=== PATIENT | male | born 1985 | race Caucasian/White ===

== ENCOUNTER 2016-06-05 12:55 | Inpatient (IN) | payer MEDICAID, OTHER ==
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
[2016-06-05] MEDS ORDERED: MAG HYDROX/AL HYDROX/SIMETH 30 ML CUP PO PRN (15:33)
[2016-06-05] MEDS ORDERED: MAGNESIUM HYDROXIDE 2,400 MG/10 ML CUP PO PRN (15:33)
[2016-06-05] MEDS ORDERED: ACETAMINOPHEN TAB 325 MG TAB PO PRN (15:33)
[2016-06-05] MEDS ORDERED: INFLUENZA VACCINE (3YR+) 60 MCG/0.5 ML SYRINGE IM ONE (15:47)
[2016-06-05] MEDS: NICOTINE 21MG/24HR PATCH TRANSDERM SCH (16:01)
[2016-06-05] MEDS: ALPRAZolam 0.5 MG TAB PO PRN (16:04)
[2016-06-05] MEDS: IBUPROFEN 800 MG TAB PO PRN (16:31)
[2016-06-05 16:36] VITALS: BMI 29.0
[2016-06-05] MEDS: traZODone HCL 100 MG TAB PO SCH (21:49)
[2016-06-06] MEDS: ALPRAZolam 0.5 MG TAB PO PRN ×3 (01:08→16:44)
[2016-06-06] MEDS: LORazepam 2 MG/ML SYRINGE IM PRN ×2 (02:00→23:10)
[2016-06-06] MEDS: NICOTINE 21MG/24HR PATCH TRANSDERM SCH (09:37)
[2016-06-06] MEDS: IBUPROFEN 800 MG TAB PO PRN (09:38)
[2016-06-06 12:11] LABS: Basophils # (A) 0.1 k/uL (0-0.2); Basophils % (A) 1 %; CH 30.5; CHCM 35.1; Eosinophils # (A) 0.2 k/uL (0-0.7); Eosinophils % (A) 2 %; HCT 44.1 % (39.0-53.0); HGB 15.1 gm/dL (13.0-17.5); Luc # (Auto) 0.11; Luc % (Auto) 1; Lymphocytes % (A) 26 %; MCH 29.9 pg (25.0-35.0); MCHC 34.2 g/dL (31.0-37.0); MCV 87.4 fL (80.0-100.0); Mean Platelet Volume 6.4; Monocytes # (A) 0.5 k/uL (0-1.0); Monocytes % (A) 6 %; Neutrophils # (A) 4.9 k/uL (1.3-7.7); Neutrophils % (A) 64 %; RBC 5.04 m/uL (4.30-5.90); RDW 13.1 % (11.5-15.5); WBC 7.7 k/uL (3.8-10.6); WBC (Perox) 8.16
[2016-06-06] MEDS: busPIRone HCl 5 MG TAB PO SCH ×3 (12:16→22:11)
[2016-06-06] MEDS: ALPRAZolam 0.5 MG TAB PO SCH ×3 (12:16→22:11)
[2016-06-06 12:34] LABS: ALT 29 U/L (21-72); AST 15 U/L (17-59); Alkaline Phosphatase 66 U/L (38-126); Anion Gap 10 mmol/L; Blood Urea Nitrogen 16 mg/dL (9-20); Calcium 9.4 mg/dL (8.4-10.2); Carbon Dioxide 30 mmol/L (22-30); Chloride 105 mmol/L (98-107); Glucose 84 mg/dL (74-99); Non-African American GFR(MDRD) >60 (>60 ml/min/1.73 sqM); Sodium 145 mmol/L (137-145); Total Bilirubin 0.7 mg/dL (0.2-1.3); Total Protein 6.6 g/dL (6.3-8.2)
--- NOTE | 2016-06-06 12:44 | P.CONS ---
History of Present Illness - Reason for Consult Consult date: 06/06/16 Medical management of IBS - History of Present Illness This is a somewhat saddened 31-year-old white male. He is complaining of significant anxiety. He reports midsternal chest pain when his anxiety is severe. He indicates this been going on for quite some time. He is here to the psych floor to deal with this and depression issues. Medically he indicates he has a history of irritable bowel syndrome and the he takes probiotics and other medications for this. His symptoms have been stable with these. He has a history of hepatitis C that is been treated. He has chronic low back pain, he seen the pain clinic for this here at [facility]. He reports his symptoms are well-controlled.. Review of Systems All systems: negative Constitutional: Reports as per HPI, Denies chills, Denies fever Eyes: denies blurred vision, denies pain Ears, nose, mouth and throat: Denies headache, Denies sore throat Cardiovascular: Reports as per HPI, Reports chest pain, Reports high blood pressure (Not recently), Denies shortness of breath Respiratory: Denies cough Gastrointestinal: Reports as per HPI, Reports abdominal pain (Mild greatest of the left upper quadrant), Reports bloating, Reports diarrhea, Denies nausea, Denies vomiting Musculoskeletal: Reports as per HPI, Reports low back pain, Denies myalgias Integumentary: Denies pruritus, Denies rash Neurological: Denies numbness, Denies weakness Psychiatric: Denies anxiety, Denies depression Endocrine: Denies fatigue, Denies weight change Past Medical History Past Medical History: Liver Disease (HCV, now in remission), Musculoskeletal Disorder (Chronic low back pain) Additional Past Medical History / Comment(s): diverticulosis History of Any Multi-Drug Resistant Organisms: None Reported Past Surgical History: Orthopedic Surgery (left shoulder and left ankle) Additional Past Surgical History / Comment(s): dental extractions Past Anesthesia/Blood Transfusion Reactions: No Reported Reaction Past Psychological History: Anxiety, Depression Smoking Status: Heavy tobacco smoker Past Alcohol Use History: None Reported Additional Past Alcohol Use History / Comment(s): HAS SMOKED 1 PPD FOR PAST 14 YRS Past Drug Use History: None Reported, Opiates (Originally for low back pain), Prescription Drug Abuse - Past Family History Father Family Medical History: Unable to Obtain Mother Family Medical History: No Reported History Medications and Allergies Home Medications Medication Instructions Recorded Confirmed Type ALPRAZolam [Xanax] 2 mg PO TID 03/23/16 06/05/16 History DULoxetine HCL [Cymbalta] 60 mg PO DAILY 04/22/16 06/05/16 History Ibuprofen [Motrin] 800 mg PO Q8H PRN 06/05/16 06/05/16 History Allergies Allergy/AdvReac Type Severity Reaction Status Date / Time ketorolac tromethamine Allergy Rash/Hives Verified 06/05/16 15:05 [From Toradol] Physical Exam Vitals: Vital Signs Temp Pulse Pulse Pulse Resp BP BP 06/06/16 10:42 94 20 121/72 06/06/16 06:46 97.7 F 74 16 06/05/16 15:59 98 F 92 16 06/05/16 15:02 98.2 F 101 H 20 123/79 BP Pulse Ox 06/06/16 10:42 99 06/06/16 06:46 112/67 06/05/16 15:59 111/79 06/05/16 15:02 95 Intake and Output 06/05/16 06/06/16 06/06/16 22:59 06:59 14:59 Other: Weight 86.5 kg 87.4 kg Patient Weight 06/07/16 06:59 Weight 87.4 kg GENERAL: Well-appearing, well-nourished and anxious HEAD: Atraumatic, normocephalic. EYES: Pupils equal round and reactive to light, extraocular movements intact, sclera anicteric, conjunctiva are normal. ENT:nares patent, oropharynx clear without exudates. Moist mucous membranes. NECK: Normal range of motion, supple without lymphadenopathy or JVD, no thyromegaly LUNGS: Breath sounds clear to auscultation bilaterally and equal. No wheezes rales or rhonchi. HEART: Regular rate and rhythm without murmurs, rubs or gallops.[id number] Normal ABDOMEN: Soft, minimally tender in all quadrants, normoactive bowel sounds. No guarding, no rebound. No masses appreciated. EXTREMITIES: Normal range of motion, no pitting or edema. No clubbing or cyanosis. NEUROLOGICAL: Cranial nerves II through XII grossly intact. Normal speech, normal gait. PSYCH: Normal mood, normal affect. SKIN: Warm, Dry, normal turgor, no rashes or lesions noted. Results CBC & Chem 7: 06/06/16 11:39 Assessment and Plan Plan: IBS: I'll restart probiotics for him to help with his stools. Anxiety and depression: This is the main reason for his admission, psychiatry is following. chronic low back pain: We nonnarcotics as he had a history of opioid abuse issues in the past. He'll follow-up in the pain clinic at discharge Opioid abuse HX: I will leave this to psychiatry HCV, now in remission: We'll monitor LFTs. Chest pain: This seems to primarily musculoskeletal a anxiety driven. I will check labs to rule out any cardiac causes Tobacco abuse: Counseling was given him today. Review his labs when they're available. Will follow up with him if needed during this admission, otherwise outpatient
[2016-06-06 13:14] LABS: Creatine Kinase 63 U/L (55-170)
[2016-06-06 13:26] LABS: Troponin I <0.012 ng/mL (0.000-0.034)
[2016-06-06 13:30] LABS: Creatine Kinase MB <0.2 ng/mL (0.0-2.4)
[2016-06-06] MEDS: LACTOBACILLUS ACIDOPH & BULGAR 1 EACH PACKET PO SCH ×2 (13:34→22:09)
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
[2016-06-06] MEDS: traZODone HCL 100 MG TAB PO SCH (22:10)
[2016-06-07] MEDS: NICOTINE 21MG/24HR PATCH TRANSDERM SCH (08:35)
[2016-06-07] MEDS: LACTOBACILLUS ACIDOPH & BULGAR 1 EACH PACKET PO SCH ×2 (08:35→21:58)
[2016-06-07] MEDS: ALPRAZolam 0.5 MG TAB PO SCH ×4 (08:35→21:58)
[2016-06-07] MEDS: DULoxetine HCL 30 MG CAPSULE.DR PO SCH (08:35)
[2016-06-07] MEDS: busPIRone HCl 5 MG TAB PO SCH ×4 (08:35→21:59)
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
[2016-06-07] MEDS: ALPRAZolam 0.5 MG TAB PO PRN (16:26)
[2016-06-07] MEDS: IBUPROFEN 800 MG TAB PO PRN (17:11)
[2016-06-07] MEDS: traZODone HCL 100 MG TAB PO SCH (21:58)
[2016-06-07] MEDS: LORazepam 2 MG/ML SYRINGE IM PRN (23:09)
[2016-06-08 06:56] VITALS: BP 112/63; PULSE 69; RESP 14; TEMP 97.7
[2016-06-08] MEDS: DULoxetine HCL 30 MG CAPSULE.DR PO SCH (08:29)
[2016-06-08] MEDS: busPIRone HCl 5 MG TAB PO SCH ×2 (08:29→12:17)
[2016-06-08] MEDS: ALPRAZolam 0.5 MG TAB PO PRN (08:29)
[2016-06-08] MEDS: NICOTINE 21MG/24HR PATCH TRANSDERM SCH (08:30)
[2016-06-08] MEDS: LACTOBACILLUS ACIDOPH & BULGAR 1 EACH PACKET PO SCH (08:34)
[2016-06-08] MEDS: ALPRAZolam 0.5 MG TAB PO SCH (08:34)
[2016-06-08] MEDS ORDERED: LORazepam 0.5 MG TAB PO PRN (08:57)
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
== END 2016-06-08 12:45 | disposition home or self-care (01) | DRG 881 ==
LOC: EC 12:55 → 3MHU 14:50
PROVIDERS: ADMIT Psychiatry & Neurology Psychiatry; ATTEND Psychiatry & Neurology Psychiatry
DX: F32.9 Major depressive disorder, single episode, unspecified (principal); R45.851 Suicidal ideations; F41.1 Generalized anxiety disorder; F17.200 Nicotine dependence, unspecified, uncomplicated; G89.29 Other chronic pain; K58.9 Irritable bowel syndrome, unspecified; M54.5 Low back pain; K57.90 Diverticulosis of intestine, part unspecified, without perforation or abscess without bleeding; F60.9 Personality disorder, unspecified; B19.20 Unspecified viral hepatitis C without hepatic coma; Z79.899 Other long term (current) drug therapy; Z88.5 Allergy status to narcotic agent
CPT/HCPCS: 80053; 80300; 82075; 82550; 82553; 84439; 84443; 84484; 85025; 90686; 93005; 99285

== ENCOUNTER → 2016-06-16 | Outpatient (CLI) | payer OTHER ==
--- NOTE | 2016-06-16 13:53 | MR ---
MR thoracic spine without contrast history: M47.814 spondylosis without myelopathy thoracic spine Multiplanar multisequence imaging through the thoracic spine, no comparisons There is multilevel spondylosis present. Thoracic cord signal is maintained. Thoracic vertebral rene s show preserved height and alignment. Some minimal endplate discogenic marrow signal changes noted a t multiple levels. Multilevel facet arthropathy changes. Schmorl's node present at the superior endpl ate of T8, T10. There is a mild scoliosis present. T6-7: Small central posterior disc herniation causes slight anterior mass effect on the thecal sac. N o significant central canal stenosis. T8-9: Small right posterior paracentral disc herniation causes anterior mass effect on the thecal sac . There is a synovial cyst arising from the facet arthropathy on the right causing some posterior lat eral mass effect on the thecal sac, there may be some encroachment on the neural foramen. T9-10: There is a anterior disc herniation which extends posteriorly into the right posterior paracen tral location and causes mass effect on the thoracic cord. Facet arthropathy causes some posterior la teral aspect of the thecal sac. IMPRESSION: Degenerative disc disease, facet arthropathy, disc herniation as described at T9-10.
== END ==
LOC: RADMRIMAIN 12:31
PROVIDERS: ATTEND Anesthesiology
DX: M51.34 Other intervertebral disc degeneration, thoracic region (principal); M46.94 Unspecified inflammatory spondylopathy, thoracic region; M51.24 Other intervertebral disc displacement, thoracic region
CPT/HCPCS: 72146

== ENCOUNTER → 2016-06-24 | Outpatient (CLI) | payer OTHER ==
[2016-06-24 13:31] VITALS: BP 138/89; PULSE 125; RESP 16; TEMP 98.2
--- NOTE | 2016-06-24 14:38 | P.PN ---
Progress Note - Text Patient returns for followup for chronic mid-back pain with radiation to paravertebral area. Patient has tried multiple NSAIDS and muscle relaxants without benefit. Patient denies adverse drug effects from medications. Today, pt denies new-onset weakness, bowel/bladder incontinence, or any other signs or symptoms of cauda equina syndrome. There are no signs of acute intoxication, and no indications of medication diversion or overuse. In addition to above, 13-point review of systems is also negative for chest pain , shortness of breath, changes in vision, changes in hearing, new onset weakness , abdominal pain, diarrhea, extreme fatigue, malaise, fever, skin changes, homicidal or suicidal ideation, or bowel or bladder incontinence. Vital Signs: Reviewed in EMR Gen: WDWN, AAOx3, NAD HEENT: NCAT, EOMI, hearing grossly normal Pulm: resp unlabored Abd: soft, NT, ND Neck: supple, trachea midline ROM in flexion thoracic spine: reduced ROM in extension thoracic spine: reduced Thoracic paravertebral tenderness: ++ thoracic Facet tenderness: ++ ROM in flexion lumbar spine: reduced ROM in extension lumbar spine: reduced Lumbar paravertebral tenderness: + Neuro: CN II-XII grossly intact, muscle strength lower extremities PRESERVED Imaging: MRI thoracic spine demonstrates small central posterior disc herniations at T6-T7, T8-T9, T9-T10. There is facet arthropathy at the T7-T8, T8-T9 level and T9-T10 levels. Assessment: 1. thoracic myofascial pain 2. thoracic spondylosis 3. chronic pain syndrome Plan: 1. Explanation: Opioid and psychological risk scores were reviewed. Diagnoses , prognoses, and multiple treatment options including but not limited to physical therapy, interventional therapies, adjuvant medical therapies, narcotic medication therapies, and surgery were discussed with the patient and all questions were answered to the patient's satisfaction. 2. Opioid agreement: no opioids prescribed today 3. Counseling: The patient was counseled extensively on SMOKING CESSATION, BODY MASS INDEX, EXERCISE. Specifically, the patient was instructed regarding the importance of smoking cessation, obesity, and exercise in the context of both chronic pain and overall health. 4. Procedures: bilateral thoracic MBB 5. Consultations: None 6. Investigations: none 7. Medications: none prescribed; will UDS at visit prior to procedure and can prescribe [place] 7.5/325 up to BID (patient was receiving from [facility] prior to his visits with us) 8. Disposition: f/u for thoracic MBB in 4-6 weeks PQRS measures: 1-Patient's medications are documented in the chart. 2-Tobacco use is positive, counseling given 3-Patient has not had a pneumococcal vaccine. 4-Advanced care planning discussed, patient unable to give. 5-Opioid contract signed with the patient today. 6-Pain positive, follow-up visit or procedure scheduled 7-Patient's blood pressure measured and documented, and patient will follow up with the primary care due to hypertension. 8-Patient's weight was measured, and body mass index ABOVE the normal limits, and counseling was done. Patient instructed to follow up with PCP. 9-Patient WAS NOT identified as an unhealthy alcohol user.
== END | disposition home or self-care (01) ==
LOC: PNWHC3 12:52
PROVIDERS: ATTEND Anesthesiology
DX: M79.1 Myalgia (principal); M47.894 Other spondylosis, thoracic region; M46.94 Unspecified inflammatory spondylopathy, thoracic region; G89.4 Chronic pain syndrome; Z72.0 Tobacco use; I10 Essential (primary) hypertension
CPT/HCPCS: 99211

== ENCOUNTER 2016-07-03 20:45 | Emergency (ER) | payer OTHER ==
[2016-07-03 20:57] VITALS: BP 137/77; PULSE 106; RESP 16; TEMP 97.2
[2016-07-03] MEDS ORDERED: ORPHENADRINE 30 MG/ML 2 ML VIAL IM STA (21:08)
--- NOTE | 2016-07-03 21:37 | XR ---
EXAMINATION TYPE: XR lumbar spine 2 or 3V DATE OF EXAM: 07/03/2016 9:23 PM COMPARISON: NONE HISTORY: Back pain TECHNIQUE: 3 views FINDINGS: The vertebra have normal spacing and alignment. Posterior elements are intact. Sacroiliac j oints are normal. IMPRESSION: Normal lumbar spine exam.
--- NOTE | 2016-07-03 21:37 | XR ---
EXAMINATION TYPE: XR thoracic spine 2V DATE OF EXAM: 07/03/2016 9:23 PM COMPARISON: NONE HISTORY: Back pain TECHNIQUE: 3 views FINDINGS: The vertebrae are of normal spacing and alignment. Posterior elements are intact. There is no paraspinal mass. I see no compression fracture. IMPRESSION: Negative thoracic spine exam.
--- NOTE | 2016-07-03 21:41 | ED ---
Back Pain HPI - General Chief Complaint: Back Pain/Injury Stated Complaint: fell(standing position), back injury Time Seen by Provider: 07/03/16 20:51 Source: patient, EMS, RN notes reviewed Limitations: no limitations - History of Present Illness Initial Comments: Patient is a 31-year-old male chief complaint of thoracic and lumbar back pain after falling on the ice. Patient reports that he has history of chronic back pain and recently had an MRI stating that he has herniated disks from T6 through T11. Patient reports that after he fell he was able to ambulate and put a heating pad on his back however he had no relief of his pain. Patient also reports that he has no loss of bowel or bladder control. Patient was able to ambulate again after the injury. Patient reports that he was seen earlier today and a another emergency facility for his chronic back pain and was discharged without any imaging studies and instructed to follow-up with his pain management doctor. Patient reports that he's had a history of anxiety and when she takes 1 mg of Ativan in the mornings. Patient denies any recent fever, chills, shortness of breath, chest pain, abdominal pain, nausea vomiting, numbness or tingling, dysuria or hematuria, constipation or diarrhea, headaches or visual changes, or any other current symptoms - Related Data Home Medications Medication Instructions Recorded Confirmed Baclofen [Lioresal] 10 mg PO TID PRN 06/24/16 06/24/16 Lactobacillus Acidoph & Bulgar 1 each PO BID PRN 06/24/16 06/24/16 [Lactinex] traZODone HCL [Desyrel] 100 mg PO HS PRN 06/24/16 06/24/16 Previous Rx's Medication Instructions Recorded Ibuprofen [Motrin] 800 mg PO Q8H PRN #0 tab 06/08/16 Nicotine 21Mg/24Hr Patch [Habitrol] 1 patch TRANSDERM DAILY #30 patch 06/08/16 Cyclobenzaprine [Flexeril] 10 mg PO TID #12 tab 07/03/16 traMADol HCl [Ultram] 50 mg PO Q6H PRN #12 tab 07/03/16 Allergies Allergy/AdvReac Type Severity Reaction Status Date / Time ketorolac tromethamine Allergy Rash/Hives Verified 06/24/16 13:08 [From Toradol] Review of Systems ROS Statement: Those systems with pertinent positive or pertinent negative responses have been documented in the HPI. ROS Other: All systems not noted in ROS Statement are negative. Past Medical History Past Medical History: Liver Disease, Musculoskeletal Disorder Additional Past Medical History / Comment(s): diverticulitis, IBS, Hepatitis C, chronic back pain. States Hepatitis C was acute and now it's gone - per Dr. Chapin History of Any Multi-Drug Resistant Organisms: None Reported Past Surgical History: Orthopedic Surgery Additional Past Surgical History / Comment(s): left shoulder, left ankle; 8 teeth extracted, [facility] Past Anesthesia/Blood Transfusion Reactions: No Reported Reaction Past Psychological History: Anxiety, Depression Additional Psychological History / Comment(s): [place] Smoking Status: Current every day smoker Past Alcohol Use History: None Reported Additional Past Alcohol Use History / Comment(s): HAS SMOKED 1 PPD FOR PAST 14 YRS Past Drug Use History: None Reported - Past Family History Father Family Medical History: Unable to Obtain Mother Family Medical History: No Reported History General Exam - General Exam Comments Initial Comments: Patient is a 31 year old male in no acute distress. Patient was able to ambulate from bed to wheel chair. Limitations: no limitations General appearance: alert, in no apparent distress Head exam: Present: atraumatic, normocephalic, normal inspection Eye exam: Present: normal appearance, PERRL, EOMI. Absent: scleral icterus, conjunctival injection, periorbital swelling ENT exam: Present: normal exam, mucous membranes moist Neck exam: Present: normal inspection. Absent: tenderness, meningismus, lymphadenopathy Respiratory exam: Present: normal lung sounds bilaterally. Absent: respiratory distress, wheezes, rales, rhonchi, stridor Cardiovascular Exam: Present: regular rate, normal rhythm, normal heart sounds. Absent: systolic murmur, diastolic murmur, rubs, gallop, clicks GI/Abdominal exam: Present: soft, normal bowel sounds. Absent: distended, tenderness, guarding, rebound, rigid Extremities exam: Present: normal inspection, full ROM, normal capillary refill. Absent: tenderness, pedal edema, joint swelling, calf tenderness Back exam: Present: normal inspection, full ROM, paraspinal tenderness (lumbar ) , vertebral tenderness (thoracic spinal tenderness over T6 ). Absent: tenderness, CVA tenderness (R), CVA tenderness (L), muscle spasm Neurological exam: Present: alert, oriented X3, CN II-XII intact, normal gait, reflexes normal. Absent: abnormal gait, motor sensory deficit Psychiatric exam: Present: normal affect, normal mood Skin exam: Present: warm Course Vital Signs 07/03/16 20:54 Temperature 97.2 F L Pulse Rate 106 H Respiratory 16 Rate Blood Pressure 137/77 O2 Sat by Pulse 96 Oximetry Medical Decision Making - Medical Decision Making Patient is a 31-year-old male with chief complaint of acute lower back pain after a fall on the ice. Patient reports smelling his thoracic spine. He has a history of herniated disc at T6 through T11. Patient had a recent MRI. Given the patient's fall is due to imaging studies of his thoracic and lumbar spine. Patient denies any saddle anesthesias is able to ambulate at this time. Patient was given IM Norflex. Patient's x-rays were reviewed to be negative for any acute fracture, spondylolisthesis or spondylolysis. I did review patient's previous charts and he does have a history of herniated disks in T6, T 90 QT 10. Patient will be discharged at this time with Flexeril and tramadol and instructed to follow-up with primary care provider or his [facility] [employer]. Patient understands treatment plan will comply. Return parameters were discussed. - Radiology Data Radiology results: report reviewed Thoracic and lumbar spine x-rays are negative for any acute fractures, spondylolisthesis or spondylolysis. Disposition Clinical Impression: Acute exacerbation of chronic low back pain Disposition: HOME SELF-CARE Condition: Good Instructions: Acute Low Back Pain (ED) Additional Instructions: instructed to follow-up with pain management. Patient advise to return the EC if any alarming signs or symptoms occur. Take anti-inflammatory and pain medications as directed. Prescriptions: Cyclobenzaprine [Flexeril] 10 mg PO TID #12 tab traMADol HCl [Ultram] 50 mg PO Q6H PRN #12 tab PRN Reason: Pain Referrals: Quang Doty MD [Primary Care Provider] - 1-2 days Time of Disposition: 21:44
[2016-07-03] MEDS ORDERED: traMADol 50 MG STARTER PACK 3 TAB BTL PO STA (21:44)
== END 2016-07-03 22:04 | disposition home or self-care (01) ==
LOC: EC 20:45
DX: M54.5 Low back pain (principal); G89.29 Other chronic pain; M51.24 Other intervertebral disc displacement, thoracic region; F17.200 Nicotine dependence, unspecified, uncomplicated; Z88.8 Allergy status to other drugs, medicaments and biological substances; Z79.899 Other long term (current) drug therapy; W00.0XXA Fall on same level due to ice and snow, initial encounter
CPT/HCPCS: 72070; 72100; 99283; 96372; J2360

== ENCOUNTER 2016-07-13 06:39 | Day surgery (SDC) | payer OTHER ==
[2016-07-13] MEDS ORDERED: LACTATED RINGERS 1,000 ML IV SCH (07:15)
[2016-07-13 07:25] VITALS: RESP 16; TEMP 97.9
[2016-07-13] MEDS ORDERED: LIDOCAINE 1% 20 ML VIAL (10MG/ML) FOR IV START INTRADERMA ONE (07:27)
[2016-07-13] MEDS ORDERED: TRIAMCINOLONE ACETONIDE 40 MG/ML 1 ML VIAL ONE (07:51)
[2016-07-13] MEDS ORDERED: fentaNYL (PF) 50 MCG/ML 2 ML AMP ONE (07:51)
[2016-07-13] MEDS ORDERED: MIDAZOLAM 2 MG/2 ML VIAL ONE (07:51)
[2016-07-13] MEDS ORDERED: BUPIVACAINE (PF) 0.5% 30 ML VIAL ONE (07:51)
[2016-07-13] MEDS ORDERED: IV FLUID CONTINUATION 1,000 ML IV ONE (08:28)
--- NOTE | 2016-07-13 08:49 | FL ---
EXAMINATION TYPE: FL guided pain mgmt statistic DATE OF EXAM: 07/13/2016 8:30 AM CLINICAL HISTORY: Mid back pain. TECHNIQUE: Fluoroscopy. COMPARISON: None. FINDINGS: Fluoroscopic guidance was provided during pain relief procedure performed by Dr. Mendoza . A total of 28 seconds of fluoroscopic time was utilized during the procedure and for spot images a re acquired. Images acquired shows needle localization at several levels in the thoracic spine bilat erally. IMPRESSION: As Above.
[2016-07-13 08:55] VITALS: BP 139/97; PULSE 89
--- NOTE | 2016-07-13 09:03 | XR ---
EXAMINATION TYPE: XR chest 1V portable DATE OF EXAM: 07/13/2016 8:58 AM COMPARISON: NONE HISTORY: Status post thoracic pain management procedure rule out pneumothorax TECHNIQUE: Single AP portable frontal upright view of the chest is obtained. FINDINGS: There is patchy left basilar atelectasis and/or infiltrate. Right lung is clear. No pleura l effusion or pneumothorax is evident bilaterally. The cardiac silhouette size is within normal limit s. The osseous structures are intact. IMPRESSION: No pneumothorax noted bilaterally. Patchy left basilar atelectasis and/or infiltrate is n oted.
--- NOTE | 2016-07-13 10:54 | P.PCN ---
Date of Procedure: 07/13/16 Procedure(s) Performed: PREOPERATIVE DIAGNOSIS : 1- Thoracic spondylosis with Facet Arthropathy without myelopathy . 2- thoracic herniated disc disease POSTOPERATIVE DIAGNOSIS: 1- Thoracic spondylosis with Facet Arthropathy without myelopathy . 2- thoracic herniated disc disease PROCEDURE: Diagnostic bilateral T7-8 ,T8-9 , T9-10 medial branch block under fluoroscopy ANESTHESIA: Local with 1% lidocaine 6 ml ; IV sedation with Versed 4 mg and Fentanyl 200 mcg. EBL: Minimal COMPLICATION: None. IV FLUIDS: 100 mL of normal saline. PROCEDURE INDICATION: Chronic low back pain secondary to Facet arthropathy unresponsive to conservative treatment. PROCEDURE DESCRIPTION: the patient was seen and identified in the preop holding area , risks and benefits and possible complications of the procedure and alternative were discussed with the patient, and the patient agreed to proceed with the procedure and signed the consent IV was started and vital signs monitored during the procedure and fluoroscopy was used to maximize the benefit and accuracy of the needle placement, and sedation was given to decrease patient anxiety, patient was taken to the procedure room and placed in prone position vital signs monitored in the back prepped with chlorhexidine X3 then under strict sterile technique using a right oblique fluoroscopy ,the junction of the transverse process and the superior articulating process of the right T7-8 ,T8-9 ,T9-10 vertebra which corresponding to the fluoroscopy image of the eye of the Mateusz dog on the block side for the medial branches and subsequently , after local infiltration of skin and subcu tissuies with lidocaine 1% one mL at each level ,then 22- gauge Quincke-type needles , 3 needle was used , each one of them placed at the junction of the base of the transverse process and the superior articular process at the appropriate level, and the needle was advanced until the periosteum contacted, needle placement confirmed with AP oblique and lateral view and after appropriate needle placement confirmed, and after negative aspiration for heme and CSF and there was no paresthesia 1-1/2 mL of Marcaine 0.5% mixed with 40 mg Kenalog , then half mL injected at each level after negative aspiration the needle subsequently removed and the same procedure repeated for the left side at left side at T7-8 ,T8-9 ,T9-10 levels. At the end of the procedure and the needles removed and a bandage applied after the skin was cleaned the cleaning solution patient taken to recovery room in stable condition and monitors in the recovery room for 20-30 minutes and discharged home in stable condition after discharge criteria met and patient will follow up with the pain clinic in 2-4 weeks
== END 2016-07-13 09:21 | disposition home or self-care (01) ==
LOC: ORPAIN 06:39
PROVIDERS: ATTEND Specialist
DX: G89.29 Other chronic pain (principal); M47.814 Spondylosis without myelopathy or radiculopathy, thoracic region; M51.24 Other intervertebral disc displacement, thoracic region; M46.94 Unspecified inflammatory spondylopathy, thoracic region; Z88.6 Allergy status to analgesic agent
CPT/HCPCS: 99152; 71010; 64490; 64491; 64492; J2250; J3301; J3010

== ENCOUNTER 2016-07-30 05:54 | Day surgery (SDC) | payer OTHER ==
[2016-07-29 11:19] VITALS: BMI 30.4
[~2016-07-30 05:54] MED LIST: LACTATED RINGERS 1,000 ML IV SCH
[2016-07-30 06:22] VITALS: RESP 16; TEMP 97.8
[2016-07-30] MEDS ORDERED: LIDOCAINE 1% 20 ML VIAL (10MG/ML) FOR IV START INTRADERMA ONE (06:24)
[2016-07-30] MEDS ORDERED: TRIAMCINOLONE ACETONIDE 40 MG/ML 1 ML VIAL ONE (08:28)
[2016-07-30] MEDS ORDERED: fentaNYL (PF) 50 MCG/ML 2 ML AMP ONE (08:28)
[2016-07-30] MEDS ORDERED: MIDAZOLAM 2 MG/2 ML VIAL ONE (08:28)
[2016-07-30] MEDS ORDERED: IOHEXOL 180 MG/ML 1 ML ML ONE (08:28)
--- NOTE | 2016-07-30 08:48 | P.PCN ---
Date of Procedure: 07/30/16 Procedure(s) Performed: PREOPERATIVE DIAGNOSIS: 1- Thoracic Degenerative Disc Diseases 2-Thoracic spondylosis with Facet arthropathy without myelopathy. 3-thoracic herniated disc disease POSTOPERATIVE DIAGNOSIS: Same as preoperative diagnosis PROCEDURE 1. Thoracic epidural steroid injection under fluoroscopic guidance at the T8-9 level. 2. Thoracic epidurogram. ANESTHESIA: Local with 1% lidocaine 3 ml and IV sedation with Versed 4 mg , and fentanyle 100 Mcg EBL: Minimal PROCEDURE INDICATION: The patient with mid back pain , unresponsive to conservative treatment. With done diagnostic medial branch blocks a few weeks ago patient reported that his pain increased after the block and he spent 2 days in. He couldn't move after the diagnostic medial branch block and is concerned about the procedure, because patient had multiple factor causing his low back pain with discussed with the patient the option of changing the procedure to thoracic epidural steroid injection, hopefully this will help his low mid back pain , Fluoroscopy was used to optimize visualization of the needle placement and to maximize safety. PROCEDURE DESCRIPTION / TECHNIQUE: The patient was seen and identified in the preoperative area. Risks, benefits , complications including but not limited to infections ,bleeding ,allergic reaction to the medications ,nerve damage and not complete pain releife , and alternatives were discussed with the patient. The patient agreed to proceed with the procedure and signed the consent. IV was started, and vital signs were stable. Patient was taken to the OR and time out was completed. The patient was placed in the prone position on procedure table and a pillow was placed under the abdomen ,. The Thoracic area was prepped and draped in the usual sterile fashion.ere closely monitored during the procedure. Conscious sedation was used during the procedure to decrease patients anxiety. Vital signs was monitered during the entire procedure. Using anterior-posterior fluoroscopy, the T8-9 interlaminar space was identified and the skin over this site was marked and then infiltrated with 1% lidocaine subcutaneously. Subsequently, a 20-gauge Tuohy epidural needle was inserted and advanced toward the epidural space using the ``Loss of resistance technique and guided by AP and lateral fluoroscopy. The correct needle position in the epidural space was verified with the injection of 2 mL of the water soluble contrast dye Omnipaque 180 contrast and observing an excellent epidurogram with the epidural spread of the dye, after negative aspiration for blood and CSF and in the absence of paresthesias. Again after negative aspiration, a 4 ml mixture containing 80 mg of Kenalog and 2 ml of preservative free Normal Saline, was injected and a washout of epidurogram was seen. Needle was withdrawn intact, skin was cleansed, and bandages were applied. COMPLICATIONS: None DISPOSITION / PLANS: The patient was placed in a supine position and transferred to the recovery area in a stable condition for observation. There was no evidence of lower extremity motor or sensory deficit after the procedure. Patient was discharged from the recovery room after meeting discharge criteria. Home discharge instructions were given to the patient by the staff. The patient was reexamined prior to discharge. The patient will schedule a follow up in the clinic in 2-4 weeks.
[2016-07-30] MEDS ORDERED: IV FLUID CONTINUATION 1,000 ML IV ONE (08:50)
--- NOTE | 2016-07-30 08:57 | FL ---
EXAMINATION TYPE: FL guided pain mgmt statistic DATE OF EXAM: 07/30/2016 8:45 AM HISTORY: Pain thoracic epidural with injection; FL time 3 seconds; one scanned film; Dr. Clayton
[2016-07-30 09:07] VITALS: BP 138/88; PULSE 86
== END 2016-07-30 09:19 | disposition home or self-care (01) ==
LOC: ORPAIN 05:54
PROVIDERS: ATTEND Specialist
DX: M51.34 Other intervertebral disc degeneration, thoracic region (principal); M47.814 Spondylosis without myelopathy or radiculopathy, thoracic region; M46.94 Unspecified inflammatory spondylopathy, thoracic region; M51.24 Other intervertebral disc displacement, thoracic region; Z88.8 Allergy status to other drugs, medicaments and biological substances
CPT/HCPCS: 99152; 80307 ×2; 62321; G0480; J2250; J3301; Q9965; J3010; 64633; 80346

== ENCOUNTER 2016-07-31 01:17 | Emergency (ER) | payer OTHER ==
[2016-07-31 01:26] VITALS: TEMP 98.1
[2016-07-31] MEDS ORDERED: ACETAMINOPHEN IV (For NPO) 1,000 MG in SALINE 100 100ML.BAG IVPB STA (01:46)
[2016-07-31] MEDS ORDERED: RX INFO: IV CONTRAST WAS GIVEN 1 EACH MISC MISCELLANE PRN (01:47)
--- NOTE | 2016-07-31 02:12 | ED ---
General Adult HPI - General Chief complaint: Back Pain/Injury Stated complaint: back pain Time Seen by Provider: 07/31/16 01:20 Source: patient, EMS, RN notes reviewed Mode of arrival: EMS - History of Present Illness Initial comments: This is a 31-year-old male with a past medical history significant for chronic back pain. Patient states he has herniated disks at T6 through T10. Patient states he has been seen in the pain doctors as well as getting tramadol and Motrin from his doctor. Patient comes in today because the back pain has not gotten any better even though he got some sort of epidural injection yesterday. Patient states there is no new weakness or numbness. Patient states no new injury or trauma patient denies any heavy lifting. - Related Data Home Medications Medication Instructions Recorded Confirmed Lactobacillus Acidoph & [place] 1 each PO BID PRN 06/24/16 07/30/16 [Lactinex] Previous Rx's Medication Instructions Recorded Ibuprofen [Motrin] 800 mg PO Q8H PRN #0 tab 06/08/16 Cyclobenzaprine [Flexeril] 10 mg PO TID #12 tab 07/03/16 Allergies Allergy/AdvReac Type Severity Reaction Status Date / Time ketorolac tromethamine Allergy Rash/Hives Verified 07/30/16 06:12 [From Toradol] Review of Systems ROS Statement: Those systems with pertinent positive or pertinent negative responses have been documented in the HPI. ROS Other: All systems not noted in ROS Statement are negative. Past Medical History Past Medical History: Liver Disease, Musculoskeletal Disorder Additional Past Medical History / Comment(s): diverticulitis, IBS, Hepatitis C, chronic back pain. States Hepatitis C was acute and now it's gone - per Dr. Chapin History of Any Multi-Drug Resistant Organisms: None Reported Past Surgical History: Orthopedic Surgery Additional Past Surgical History / Comment(s): left shoulder, left ankle; 8 teeth extracted, [facility] Past Anesthesia/Blood Transfusion Reactions: No Reported Reaction Past Psychological History: Anxiety, Depression Additional Psychological History / Comment(s): Anexity Smoking Status: Current every day smoker Past Alcohol Use History: None Reported Additional Past Alcohol Use History / Comment(s): HAS SMOKED 1 PPD FOR PAST 14 YRS Past Drug Use History: None Reported - Past Family History Father Family Medical History: Unable to Obtain Mother Family Medical History: No Reported History General Exam - General Exam Comments Initial Comments: GENERAL: Patient is well-developed and well-nourished. Patient is nontoxic and well- hydrated and is in mild distress. ENT: Neck is soft and supple. No significant lymphadenopathy is noted. Oropharynx is clear. Moist mucous membranes. Neck has full range of motion without eliciting any pain. EYES: The sclera were anicteric and conjunctiva were pink and moist. Extraocular movements were intact and pupils were equal round and reactive to light. Eyelids were unremarkable. PULMONARY: Unlabored respirations. Good breath sounds bilaterally. No audible rales rhonchi or wheezing was noted. CARDIOVASCULAR: There is a regular rate and rhythm without any murmurs gallops or rubs. ABDOMEN: Soft and nontender with normal bowel sounds. No palpable organomegaly was noted. There is no palpable pulsatile mass. SKIN: Skin is clear with no lesions or rashes and otherwise unremarkable. NEUROLOGIC: Patient is alert and oriented x3. Cranial nerves II through XII are grossly intact. Motor and sensory are also intact. Normal speech, volume and content. Symmetrical smile. Perineum exam was normal patient had a negative straight leg exam to 45 bilaterally MUSCULOSKELETAL: Normal extremities with adequate strength and full range of motion. No lower extremity swelling or edema. No calf tenderness. LYMPHATICS: No significant lymphadenopathy is noted PSYCHIATRIC: Normal psychiatric evaluation. Course Vital Signs 07/31/16 07/31/16 01:23 02:18 Temperature 98.1 F Pulse Rate 108 H 89 Respiratory 18 16 Rate Blood Pressure 159/95 145/78 O2 Sat by Pulse 98 98 Oximetry Medical Decision Making - Medical Decision Making Because the patient's procedure CAT scan to rule out any Hematoma patient did not want the CAT scan he stated he wanted an MRI I told him it was unable to do an MRI he wanted to be discharged in stable. Follow-up with his home. I told the patient I was not comfortable discharging I would AMA him because there is a possibility he has something significant going on in his back. He still wanted to leave. When patient was discharged he got up out of bed and walked out an episode in no distress and no limp at all. Disposition Clinical Impression: Mechanical back pain Disposition: Left Against Medical Advice Instructions: Chronic Back Pain (ED) Referrals: Raul Schwartz Jr, [Primary Care Provider] - 1-2 days Time of Disposition: 02:18
[2016-07-31 02:21] VITALS: BP 145/78; PULSE 89; RESP 16
== END 2016-07-31 02:21 | disposition left against medical advice (07) ==
LOC: EC 01:17
DX: G89.29 Other chronic pain (principal); M54.9 Dorsalgia, unspecified; F17.200 Nicotine dependence, unspecified, uncomplicated; Z88.6 Allergy status to analgesic agent; Z79.899 Other long term (current) drug therapy
CPT/HCPCS: 99283; 96365; J0131

== ENCOUNTER 2016-08-06 03:51 | Emergency (ER) | payer OTHER ==
[2016-08-06] MEDS ORDERED: ORPHENADRINE 30 MG/ML 2 ML VIAL IVP STA (03:52)
[2016-08-06] MEDS ORDERED: ACETAMINOPHEN IV (For NPO) 1,000 MG in SALINE 1 100ML.BAG IVPB STA (03:53)
[2016-08-06] MEDS ORDERED: IBUPROFEN 800 MG TAB PO STA (03:55)
--- NOTE | 2016-08-06 03:58 | ED ---
Back Pain HPI - General Stated Complaint: back pain Time Seen by Provider: 08/06/16 03:51 Source: patient, EMS, RN notes reviewed Mode of arrival: EMS - History of Present Illness Initial Comments: This is a 31-year-old male with a history of thoracic disc disease from T6 to T10 who came in by EMS because of severe midthoracic back pain is started around 2 AM this morning. He states he has had recent epidurals and injections. States he did sneeze last night he denies any pain until 2 AM this morning. He is scheduled on the of this month for an appointment for possible evaluation for surgery. He states the pain is 8/10 severity at this time. MD Complaint: back pain - Related Data Home Medications Medication Instructions Recorded Confirmed Ibuprofen [Motrin] 600 mg PO Q8H PRN 08/06/16 08/06/16 Previous Rx's Medication Instructions Recorded Cyclobenzaprine [Flexeril] 10 mg PO TID #14 tab 08/06/16 Hydrocodone/Acetaminophen [[place] 1 each PO Q6HR PRN #20 tab 08/06/16 5-325] Ibuprofen [Motrin] 800 mg PO Q6HR PRN #20 tab 08/06/16 Allergies Allergy/AdvReac Type Severity Reaction Status Date / Time ketorolac tromethamine Allergy Rash/Hives Verified 08/06/16 04:07 [From Toradol] Review of Systems ROS Statement: Those systems with pertinent positive or pertinent negative responses have been documented in the HPI. ROS Other: All systems not noted in ROS Statement are negative. Past Medical History Past Medical History: Liver Disease, Musculoskeletal Disorder Additional Past Medical History / Comment(s): diverticulitis, IBS, Hepatitis C, chronic back pain. States Hepatitis C was acute and now it's gone - per Dr. Chapin History of Any Multi-Drug Resistant Organisms: None Reported Past Surgical History: Orthopedic Surgery Additional Past Surgical History / Comment(s): left shoulder, left ankle; 8 teeth extracted, [facility]IN [facility]IC Past Anesthesia/Blood Transfusion Reactions: No Reported Reaction Past Psychological History: Anxiety, Depression Additional Psychological History / Comment(s): Anexity Smoking Status: Current every day smoker Past Alcohol Use History: None Reported Additional Past Alcohol Use History / Comment(s): HAS SMOKED 1 PPD FOR PAST 14 YRS Past Drug Use History: None Reported - Past Family History Father Family Medical History: Unable to Obtain Mother Family Medical History: No Reported History General Exam - General Exam Comments Initial Comments: This is a well-developed well-nourished awake alert oriented history male he is tearful General appearance: alert, anxious, in distress Head exam: Present: atraumatic, normocephalic, normal inspection Eye exam: Present: normal appearance, PERRL, EOMI. Absent: scleral icterus, conjunctival injection, periorbital swelling ENT exam: Present: normal exam, mucous membranes moist Neck exam: Present: normal inspection. Absent: tenderness, meningismus, lymphadenopathy Respiratory exam: Present: normal lung sounds bilaterally. Absent: respiratory distress, wheezes, rales, rhonchi, stridor Cardiovascular Exam: Present: regular rate, normal rhythm, normal heart sounds. Absent: systolic murmur, diastolic murmur, rubs, gallop, clicks Extremities exam: Present: normal inspection, full ROM, normal capillary refill. Absent: tenderness, pedal edema, joint swelling, calf tenderness Back exam: Present: normal inspection, tenderness, muscle spasm, paraspinal tenderness, other (Tenderness palpation of the mid thoracic paraspinous muscles no definite spinous process tenderness no step-off or crepitation.). Absent: vertebral tenderness Neurological exam: Present: alert, oriented X3, CN II-XII intact Psychiatric exam: Present: anxious Skin exam: Present: warm, dry, intact, normal color. Absent: rash Course Vital Signs 08/06/16 08/06/16 03:51 04:26 Temperature 99.2 F Pulse Rate 120 H 115 H Respiratory 22 20 Rate Blood Pressure 147/91 132/91 O2 Sat by Pulse 97 97 Oximetry Medical Decision Making - Medical Decision Making Patient is feeling improved at this time and is ready go home he is obtaining a ride he will be discharged is follow-up with his doctor return when necessary he will go on a short course of pain medication. - EKG Data -: EKG Interpreted by Me EKG shows normal: sinus rhythm, axis, intervals, QRS complexes, ST-T waves ( Sinus tachycardia with a rate of 114 [place] interval 166 QRS duration 92 QT/QTC of 380/[address]-T wave changes.) Rate: tachycardia Disposition Clinical Impression: Thoracic back pain Disposition: HOME SELF-CARE Condition: Good Instructions: Back Pain (ED) Prescriptions: Cyclobenzaprine [Flexeril] 10 mg PO TID #14 tab Hydrocodone/Acetaminophen [[place] 5-325] 1 each PO Q6HR PRN #20 tab PRN Reason: Pain Ibuprofen [Motrin] 800 mg PO Q6HR PRN #20 tab PRN Reason: Pain
[2016-08-06] MEDS ORDERED: HYDROmorphone 1 MG/ML 1 ML SYRINGE IVP STA (04:48)
[2016-08-06] MEDS ORDERED: LORazepam 2 MG/ML SYRINGE IV STA (04:48)
[2016-08-06 05:31] VITALS: BP 129/79; PULSE 80; RESP 16; TEMP 98
== END 2016-08-06 05:31 | disposition home or self-care (01) ==
LOC: EC 03:51
DX: M54.6 Pain in thoracic spine (principal); F17.200 Nicotine dependence, unspecified, uncomplicated; Z88.5 Allergy status to narcotic agent
CPT/HCPCS: 93005; 99284; 96365; 96375 ×3; J2060; J2360; J1170; J0131

== ENCOUNTER → 2016-08-10 | Outpatient (CLI) | payer OTHER ==
[2016-08-10 14:08] VITALS: BP 157/97; PULSE 98; RESP 16; TEMP 98.2
--- NOTE | 2016-08-10 14:36 | P.PN ---
Progress Note - Text Patient returns for followup for chronic mid-back pain with radiation to paravertebral area. Patient has undergone thoracic MBB x 1 with no relief and thoracic ULISES with 2 days' relief of 40% of pain. Patient has tried multiple NSAIDS and muscle relaxants without benefit and is requesting opioids today after negative UDS. Patient denies adverse drug effects from medications. Today, pt denies new-onset weakness, bowel/bladder incontinence, or any other signs or symptoms of cauda equina syndrome. There are no signs of acute intoxication, and no indications of medication diversion or overuse. In addition to above, 13-point review of systems is also negative for chest pain , shortness of breath, changes in vision, changes in hearing, new onset weakness , abdominal pain, diarrhea, extreme fatigue, malaise, fever, skin changes, homicidal or suicidal ideation, or bowel or bladder incontinence. Vital Signs: Reviewed in EMR Gen: WDWN, AAOx3, NAD HEENT: NCAT, EOMI, hearing grossly normal Pulm: resp unlabored Abd: soft, NT, ND Neck: supple, trachea midline Thoracic paravertebral tenderness: ++ Thoracic Facet tenderness: ++ ROM in flexion lumbar spine: reduced ROM in extension lumbar spine: reduced Lumbar paravertebral tenderness: + Neuro: CN II-XII grossly intact, muscle strength lower extremities PRESERVED Imaging: MRI thoracic spine demonstrates small central posterior disc herniations at T6-T7, T8-T9, T9-T10. There is facet arthropathy at the T7-T8, T8-T9 level and T9-T10 levels. Assessment: 1. thoracic myofascial pain 2. thoracic spondylosis 3. chronic pain syndrome Plan: 1. Explanation: Opioid and psychological risk scores were reviewed. Diagnoses , prognoses, and multiple treatment options including but not limited to physical therapy, interventional therapies, adjuvant medical therapies, narcotic medication therapies, and surgery were discussed with the patient and all questions were answered to the patient's satisfaction. 2. Opioid agreement: Patient will today sign narcotic agreement, and was orally counseled to not overuse, abuse, divert, or cell medications, and to take them as prescribed by only 1 healthcare provider. The patient was also counseled to store opioid medications in a safe and preferably locked location. Patient was also counseled against driving or operating heavy equipment while using narcotic medications and also to not use alcohol or any illicit or recreational drugs. The patient verbalized understanding that lack of compliance with any of the above and likely result in failure to renew narcotic prescriptions, possible discharge from the clinic, and possible legal ramifications thereafter if indicated. 3. Counseling: The patient was counseled extensively on SMOKING CESSATION, BODY MASS INDEX, EXERCISE. Specifically, the patient was instructed regarding the importance of smoking cessation, obesity, and exercise in the context of both chronic pain and overall health. 4. Procedures: none for now 5. Consultations: [facility] for anxiety control; [facility] for possible surgical intervention 6. Investigations: none 7. Medications: UDS OK; will prescribe [place] 7.5/325 daily #30 with one refill 8. Disposition: f/u for re-eval 8 weeks after [facility] visit and [facility] appt PQRS measures: 1-Patient's medications are documented in the chart. 2-Tobacco use is positive, counseling given 3-Patient has not had a pneumococcal vaccine. 4-Advanced care planning discussed, patient unable to give. 5-Opioid contract signed with the patient today. 6-Pain positive, follow-up visit or procedure scheduled 7-Patient's blood pressure measured and documented, and patient will follow up with the primary care due to hypertension. 8-Patient's weight was measured, and body mass index ABOVE the normal limits, and counseling was done. Patient instructed to follow up with PCP. 9-Patient WAS NOT identified as an unhealthy alcohol user.
== END | disposition home or self-care (01) ==
LOC: PNWHC3 13:23
PROVIDERS: ATTEND Anesthesiology
DX: M47.814 Spondylosis without myelopathy or radiculopathy, thoracic region (principal); G89.4 Chronic pain syndrome
CPT/HCPCS: 99211

== ENCOUNTER 2016-08-27 02:21 | Emergency (ER) | payer OTHER ==
[2016-08-27 02:27] VITALS: RESP 16; TEMP 98
[2016-08-27] MEDS ORDERED: ACETAMINOPHEN TAB 500 MG TAB PO STA (02:52)
[2016-08-27] MEDS ORDERED: CYCLOBENZAPRINE 10 MG TAB PO STA (02:52)
[2016-08-27] MEDS ORDERED: methylPREDNISolone SOD SUCCI 125 MG/2 ML VIAL IM STA (02:52)
[2016-08-27] MEDS ORDERED: DEXAMETHASONE SOD PHOSPHATE 10 MG/ML 1 ML VIAL PO ONE (04:02)
--- NOTE | 2016-08-27 04:05 | XR ---
EXAM: XR Thoracic Spine, 2 Views. CLINICAL HISTORY: Reason: Pain TECHNIQUE: Frontal and lateral views of the thoracic spine. COMPARISON: 07/03/16 FINDINGS: Vertebrae: Unremarkable. No acute fracture. Normal alignment. Disc spaces: No acute findings. No significant narrowing. Soft tissues: Unremarkable. Other findings: No significant change. IMPRESSION: No acute findings.
--- NOTE | 2016-08-27 04:08 | XR ---
EXAM: XR Lumbar Spine, 4 or 5 Views. CLINICAL HISTORY: Reason: Pain TECHNIQUE: Frontal, lateral and oblique views of the lumbar spine. COMPARISON: 07/03/16 FINDINGS: Vertebrae: Unremarkable. No acute fracture. Normal alignment. Disc spaces: No acute findings. No significant narrowing. Soft tissues: Unremarkable. Other findings: No significant change. IMPRESSION: No acute findings.
[2016-08-27] MEDS ORDERED: DEXAMETHASONE 4 MG TAB PO STA (04:09)
--- NOTE | 2016-08-27 05:27 | ED ---
Back Pain HPI - General Chief Complaint: Back Pain/Injury Stated Complaint: back pain Time Seen by Provider: 08/27/16 02:29 Source: patient - History of Present Illness Initial Comments: Complaining about the back pain this is ongoing pain he denies any new fall or new trauma he denies any bowel or bladder dysfunction , nursing staff printed a progress note about the patient from [facility] 08/10/2016. He seen kamala Curry to the documentation signed a opiate contract with the above- mentioned physician in 08/10/2016 and above-mentioned physician prescribed him mom [place] 7.5/08/28/1929 pills with 1 refill has follow-up in [address] Jesse meredith the pain contract inhibit patient from giving narcotics from many is a physician - Related Data Previous Rx's Medication Instructions Recorded Cyclobenzaprine [Flexeril] 10 mg PO TID #14 tab 08/06/16 Ibuprofen [Motrin] 800 mg PO Q6HR PRN #20 tab 08/06/16 HYDROcodone/APAP 7.5-325MG [[place] 1 tab PO DAILY PRN #30 tab 08/10/16 7.5-325] Diclofenac Sodium [Voltaren] 50 mg PO BID #45 tablet. 08/27/16 Gabapentin [Neurontin] 200 mg PO DAILY #60 cap 08/27/16 Allergies Allergy/AdvReac Type Severity Reaction Status Date / Time ketorolac tromethamine Allergy Rash/Hives Verified 08/10/16 13:48 [From Toradol] Review of Systems ROS Statement: Those systems with pertinent positive or pertinent negative responses have been documented in the HPI. ROS Other: All systems not noted in ROS Statement are negative. Past Medical History Past Medical History: Liver Disease, Musculoskeletal Disorder Additional Past Medical History / Comment(s): diverticulitis, IBS, Hepatitis C, chronic back pain. States Hepatitis C was acute and now it's gone - per Dr. Chapin History of Any Multi-Drug Resistant Organisms: None Reported Past Surgical History: Orthopedic Surgery Additional Past Surgical History / Comment(s): left shoulder, left ankle; 8 teeth extracted, [facility] Past Anesthesia/Blood Transfusion Reactions: No Reported Reaction Past Psychological History: Anxiety, Depression Additional Psychological History / Comment(s): Anexity Smoking Status: Current every day smoker Past Alcohol Use History: None Reported Additional Past Alcohol Use History / Comment(s): HAS SMOKED 1 PPD FOR PAST 14 YRS Past Drug Use History: None Reported - Past Family History Father Family Medical History: Unable to Obtain Mother Family Medical History: No Reported History General Exam - General Exam Comments Initial Comments: General: The patient is awake and alert Skin: Skin is warm and dry and no rashes or lesions are noted. Eye: Pupils are equal, round and reactive to light, extra-ocular movements are intact; there is normal conjunctiva bilaterally. Ears, nose, mouth and throat: There are moist mucous membranes and no oral lesions. Neck: The neck is supple, there is no tenderness or JVD. Cardiovascular: There is a regular rate and rhythm. No murmur, rub or gallop is appreciated. Respiratory: To auscultation bilateral, no wheezing no rhonchi no distress respiratory ledbetter noticed Gastrointestinal: Soft, non-distended, non-tender abdomen without masses or organomegaly noted. There is no rebound or guarding present. Bowel sounds are unremarkable. Back: There is no tenderness to palpation in the midline. There is no obvious deformity. Musculoskeletal: Some initial the back did not reveal any focal area of swelling no rash noticed mild tenderness noticed in the paraspinal area both sides Neurological: CN II-XII intact, Cranial nerves III through XII are intact. There are no obvious motor or sensory deficits. Coordination appears grossly intact. Speech is normal. Psychiatric: Cooperative, appropriate mood & affect, normal judgment. Course Vital Signs 08/27/16 02:23 Temperature 98 F Pulse Rate 74 Respiratory 16 Rate Blood Pressure 131/74 O2 Sat by Pulse 98 Oximetry - Reevaluation(s) Reevaluation #2: 08/27/16 05:33 She was giving out toward her and knowing that he is ALLERGIC to all portal the patient does take Motrin a daily basis this is one of his regular medications Disposition Clinical Impression: Chronic back pain Disposition: HOME SELF-CARE Instructions: Chronic Back Pain (ED) Additional Instructions: Center will follow up with the his pain management doctor with whom he has contracted and he is also going to see Dr. Molina spine surgeon, x-ray reports were reviewed and discussed with the patient for sick in the lumbar spine was unremarkable Prescriptions: Diclofenac Sodium [Voltaren] 50 mg PO BID #45 tablet. Gabapentin [Neurontin] 200 mg PO DAILY #60 cap Referrals: Raul Schwartz Jr, DO [Primary Care Provider] - 1-2 days
[2016-08-27 05:42] VITALS: BP 128/70; PULSE 68
== END 2016-08-27 05:41 | disposition home or self-care (01) ==
LOC: EC 02:21
DX: M54.9 Dorsalgia, unspecified (principal); G89.29 Other chronic pain; Z79.899 Other long term (current) drug therapy; Z79.891 Long term (current) use of opiate analgesic; F17.200 Nicotine dependence, unspecified, uncomplicated; Z88.6 Allergy status to analgesic agent
CPT/HCPCS: 72072; 72110; 99283; 96372; J8540; J2930

== ENCOUNTER 2016-09-30 20:31 | Emergency (ER) | payer OTHER ==
[2016-09-30 20:43] VITALS: BP 110/68; PULSE 88; RESP 18; TEMP 97.5
[2016-09-30] MEDS ORDERED: LIDOCAINE 5% PATCH TOPICAL STA (20:59)
[2016-09-30] MEDS ORDERED: METHOCARBAMOL 500 MG TAB PO STA (21:00)
--- NOTE | 2016-09-30 21:12 | ED ---
Back Pain HPI - General Chief Complaint: Back Pain/Injury Stated Complaint: Back Injury Time Seen by Provider: 09/30/16 20:38 Source: patient Limitations: no limitations - History of Present Illness Initial Comments: Patient is a 31-year-old male with history of polysubstance abuse, tobacco abuse , chronic back pain presenting with acute exacerbation of chronic back pain. Patient states he was mowing the lawn. He was finished and moved stuff in the shed to put the technical support analyst back in. Patient thinks he turned the wrong way and worsened his back pain. Patient states he tried 2 Motrin 800 mg before coming to the hospital. Patient laid down without improvement. Patient states most of his back pain is on the left but then will go across to the right. Patient states he follows up with Dr. Molina but is "done with him." Patient has tried trigger point injections, epidural, pain medications. Patient is ALLERGIC to Toradol. Patient takes [place] 7.5 and has been so for several months. Patient has appointment with Dr. Aren South at [facility] for neurosurgical evaluation on the October 25. Patient is requesting a CAT scan. Patient is requesting something stronger for his pain as he is unable to take Toradol. Patient states he'll be able to get a car ride home. Patient denies any fever, chills, chest pain, stress breath or nausea, vomiting, diarrhea, dysuria. Patient denies any incontinence of bowel or bladder. Patient denies any weakness of his lower extremities. Patient denies any saddle anesthesia. Patient denies IV drug use or steroid use. He denies any trauma. - Related Data Previous Rx's Medication Instructions Recorded Cyclobenzaprine [Flexeril] 10 mg PO TID #14 tab 08/06/16 Ibuprofen [Motrin] 800 mg PO Q6HR PRN #20 tab 08/06/16 HYDROcodone/APAP 7.5-325MG [[place] 1 tab PO DAILY PRN #30 tab 08/10/16 7.5-325] Diclofenac Sodium [Voltaren] 50 mg PO BID #45 tablet. 08/27/16 Gabapentin [Neurontin] 200 mg PO DAILY #60 cap 08/27/16 Allergies Allergy/AdvReac Type Severity Reaction Status Date / Time ketorolac tromethamine Allergy Rash/Hives Verified 09/30/16 20:42 [From Toradol] Review of Systems ROS Statement: Those systems with pertinent positive or pertinent negative responses have been documented in the HPI. Constitutional: No fever and no chills. HENT: No congestion, no rhinorrhea and no sore throat. Eyes: No discharge and no redness. Respiratory: No cough and no shortness of breath. Cardiovascular: No chest pain and no palpitations. Gastrointestinal: No nausea, no vomiting, no abdominal pain and no diarrhea. Genitourinary: No dysuria and no hematuria. Musculoskeletal: +back pain and no arthralgias. Skin: No pallor and no rash. Neurological: No dizziness and No headaches. ROS Other: All systems not noted in ROS Statement are negative. Past Medical History Past Medical History: Liver Disease, Musculoskeletal Disorder Additional Past Medical History / Comment(s): diverticulitis, IBS, Hepatitis C, chronic back pain. States Hepatitis C was acute and now it's gone - per Dr. Chapin History of Any Multi-Drug Resistant Organisms: None Reported Past Surgical History: Orthopedic Surgery Additional Past Surgical History / Comment(s): left shoulder, left ankle; 8 teeth extracted, [facility] Past Anesthesia/Blood Transfusion Reactions: No Reported Reaction Past Psychological History: Anxiety, Depression Additional Psychological History / Comment(s): [place] Smoking Status: Current every day smoker Past Alcohol Use History: None Reported Additional Past Alcohol Use History / Comment(s): HAS SMOKED 1 PPD FOR PAST 14 YRS Past Drug Use History: None Reported - Past Family History Father Family Medical History: Unable to Obtain Mother Family Medical History: No Reported History General Exam - General Exam Comments Initial Comments: Constitutional: Patient appears well-developed and well-nourished. Patient appears stiff in the bed without any apparent distress. Head: Normocephalic and atraumatic. Eyes: Conjunctivae and EOM are normal. Right eye exhibits no discharge. Left eye exhibits no discharge. No scleral icterus. Neck: Normal range of motion. Neck supple. Cardiovascular: Normal rate and regular rhythm. No murmur heard. Pulmonary/Chest: Effort normal and breath sounds normal. No respiratory distress. No wheezes. Abdominal: Soft. No distension. There is no tenderness. There is no rebound and no guarding. Musculoskeletal: Patient with no midline C/T/L-spine tenderness. No reproducible right upper mid or lower back tenderness. No reproducible tenderness on the left upper, middle, lower back. Saddle sensation intact. Lower muscle strength 5 out of 5. Distal pulses present. Neurological: Patient alert and oriented to person, place, and time. Skin: Skin is warm and dry. Not diaphoretic. Nursing notes and vitals reviewed. Limitations: no limitations Course Vital Signs 09/30/16 20:35 Temperature 97.5 F L Pulse Rate 88 Respiratory 18 Rate Blood Pressure 110/68 O2 Sat by Pulse 97 Oximetry - Reevaluation(s) Reevaluation #1: 09/30/16 21:08 Notified by RN that patient wants a CAT scan and something strong for his pain. Patient was offered nonnarcotic pain medications and refusing. Patient was educated as to indications for CAT scans with back pain. Patient requesting to leave AGAINST MEDICAL ADVICE. Patient given risks, benefits and alternatives and still refusing to leave AGAINST MEDICAL ADVICE. Medical Decision Making - Medical Decision Making Patient is a 31-year-old male with chronic back pain and history of polysubstance abuse presenting with acute on chronic back pain. Patient states he was moving stuff in his shed which exacerbated his back pain. Patient tried Motrin without relief. Patient requesting a CAT scan and strong pain medication. Patient educated about appropriate back pain management. Patient has no red flags for his back pain at this time. Patient was offered nonnarcotic pain medications. Patient refusing treatment and of sound mind to leave AGAINST MEDICAL ADVICE. Disposition Clinical Impression: Back pain Disposition: Left Against Medical Advice Instructions: Chronic Back Pain (ED), Acute Low Back Pain (ED) Referrals: Raul Schwartz Jr, [Primary Care Provider] - 1-2 days
== END 2016-09-30 21:10 | disposition left against medical advice (07) ==
LOC: EC 20:31
DX: M54.9 Dorsalgia, unspecified (principal); F17.200 Nicotine dependence, unspecified, uncomplicated; Z88.6 Allergy status to analgesic agent
CPT/HCPCS: 99283

== ENCOUNTER → 2016-10-05 | Outpatient (CLI) | payer OTHER ==
[2016-10-05 14:41] VITALS: BP 137/93; PULSE 91; RESP 18; TEMP 99.2
--- NOTE | 2016-10-05 15:04 | P.PN ---
Progress Note - Text Patient returns for followup for chronic mid-back pain with radiation to paravertebral area. Patient has undergone thoracic MBB x 1 with no relief and thoracic ULISES with 2 days' relief of 40% of pain. Dr. Sethi would not accept his insurance so he is going to see Dr. Aren South at [facility] for surgical evaluation for his spine. Patient has tried multiple NSAIDS and muscle relaxants without benefit and is requesting opioids today after negative UDS. Patient denies adverse drug effects from medications. Today, pt denies new-onset weakness, bowel/bladder incontinence, or any other signs or symptoms of cauda equina syndrome. There are no signs of acute intoxication, and no indications of medication diversion or overuse. Review of medical records demonstrates that patient has been to multiple emergency room visits (in multiple emergency rooms) and that patient is requesting "strong" pain medications and refusing NSAIDs. Patient also has a history of heroin abuse that is remote. In addition to above, 13-point review of systems is also negative for chest pain , shortness of breath, changes in vision, changes in hearing, new onset weakness , abdominal pain, diarrhea, extreme fatigue, malaise, fever, skin changes, homicidal or suicidal ideation, or bowel or bladder incontinence. Vital Signs: Reviewed in EMR Gen: WDWN, AAOx3, NAD HEENT: NCAT, EOMI, hearing grossly normal Pulm: resp unlabored Abd: soft, NT, ND Neck: supple, trachea midline Thoracic paravertebral tenderness: ++ Thoracic Facet tenderness: ++ ROM in flexion lumbar spine: reduced ROM in extension lumbar spine: reduced Lumbar paravertebral tenderness: + Neuro: CN II-XII grossly intact, muscle strength lower extremities PRESERVED Imaging: MRI thoracic spine demonstrates small central posterior disc herniations at T6-T7, T8-T9, T9-T10. There is facet arthropathy at the T7-T8, T8-T9 level and T9-T10 levels. Assessment: 1. thoracic myofascial pain 2. thoracic spondylosis 3. chronic pain syndrome Plan: 1. Explanation: Opioid and psychological risk scores were reviewed. Diagnoses , prognoses, and multiple treatment options including but not limited to physical therapy, interventional therapies, adjuvant medical therapies, narcotic medication therapies, and surgery were discussed with the patient and all questions were answered to the patient's satisfaction. 2. Opioid agreement: Patient will today sign narcotic agreement, and was orally counseled to not overuse, abuse, divert, or cell medications, and to take them as prescribed by only 1 healthcare provider. The patient was also counseled to store opioid medications in a safe and preferably locked location. Patient was also counseled against driving or operating heavy equipment while using narcotic medications and also to not use alcohol or any illicit or recreational drugs. The patient verbalized understanding that lack of compliance with any of the above and likely result in failure to renew narcotic prescriptions, possible discharge from the clinic, and possible legal ramifications thereafter if indicated. 3. Counseling: The patient was counseled extensively on SMOKING CESSATION, BODY MASS INDEX, EXERCISE. Specifically, the patient was instructed regarding the importance of smoking cessation, obesity, and exercise in the context of both chronic pain and overall health. 4. Procedures: none for now 5. Consultations: none for now 6. Investigations: none 7. Medications: Will prescribe [place] 7.5/325 daily #30 as last prescription. Patient has received prescriptions for Flexeril, diclofenac, and Neurontin and has stopped taking all of them within 2-3 weeks. 8. Disposition: Patient is discharged from our services. He has gotten essentially no relief from previous interventional procedures and has sought medications at multiple emergency rooms and demonstrated clear drug-seeking behavior. He is referred for suboxone therapy. 30 Drummond pills were given to him as a final prescription. Patient will follow up with Dr. South for surgical evaluation and he will not be seen in our clinic any longer. PQRS measures: 1-Patient's medications are documented in the chart. 2-Tobacco use is positive, counseling given 3-Patient has not had a pneumococcal vaccine. 4-Advanced care planning discussed, patient unable to give. 5-Opioid contract signed with the patient today. 6-Pain positive, follow-up visit or procedure scheduled 7-Patient's blood pressure measured and documented, and patient will follow up with the primary care due to hypertension. 8-Patient's weight was measured, and body mass index ABOVE the normal limits, and counseling was done. Patient instructed to follow up with PCP. 9-Patient WAS NOT identified as an unhealthy alcohol user.
== END ==
LOC: PNWHC3 14:20
PROVIDERS: ATTEND Anesthesiology
DX: M47.814 Spondylosis without myelopathy or radiculopathy, thoracic region (principal); M79.1 Myalgia; G89.4 Chronic pain syndrome; Z79.891 Long term (current) use of opiate analgesic; Z79.899 Other long term (current) drug therapy
CPT/HCPCS: 99211

== ENCOUNTER 2016-12-03 05:35 | Emergency (ER) | payer OTHER ==
[2016-12-03] MEDS ORDERED: HYDROmorphone 2 MG/ML 1 ML SYRINGE IM STA (07:37)
[2016-12-03] MEDS ORDERED: LORazepam 1 MG TAB PO STA (07:37)
--- NOTE | 2016-12-03 07:37 | ED ---
General Adult HPI - General Chief complaint: Back Pain/Injury Stated complaint: back pain Time Seen by Provider: 12/03/16 06:13 Source: patient, RN notes reviewed, old records reviewed Mode of arrival: EMS Limitations: no limitations - History of Present Illness Initial comments: This is a 31-year-old male the ER for evaluation of back pain. Patient admits back is chronic in nature. He states he is and been unable to see his pain management doctor, does have follow-up with family doctor next week. Patient is out of medications for for anxiety and pain. No new trauma. No loss of bowel or bladder, no fevers. Denies any drug abuse or alcohol use - Related Data Home Medications Medication Instructions Recorded Confirmed Bisoprolol-Hctz 10-6.25 mg [Ziac 1 tab PO DAILY 12/03/16 12/03/16 10-6.25 MG] Diazepam [Valium] 5 mg PO HS 12/03/16 12/03/16 Previous Rx's Medication Instructions Recorded HYDROcodone/APAP 5-325MG [[place] 1 tab PO Q6HR PRN #30 tab 12/03/16 5-325] LORazepam [Ativan] 1 mg PO BID #30 tab 12/03/16 Naproxen [Naprosyn] 500 mg PO Q12HR #30 tab 12/03/16 Allergies Allergy/AdvReac Type Severity Reaction Status Date / Time ketorolac tromethamine Allergy Rash/Hives Verified 12/03/16 07:45 [From Toradol] Review of Systems ROS Statement: Those systems with pertinent positive or pertinent negative responses have been documented in the HPI. ROS Other: All systems not noted in ROS Statement are negative. Past Medical History Past Medical History: Liver Disease, Musculoskeletal Disorder Additional Past Medical History / Comment(s): diverticulitis, IBS, Hepatitis C, chronic back pain. States Hepatitis C was acute and now it's gone - per Dr. Chapin History of Any Multi-Drug Resistant Organisms: None Reported Past Surgical History: Orthopedic Surgery Additional Past Surgical History / Comment(s): left shoulder, left ankle; 8 teeth extracted, [facility] Past Anesthesia/Blood Transfusion Reactions: No Reported Reaction Past Psychological History: Anxiety, Depression Smoking Status: Current every day smoker Past Alcohol Use History: None Reported Past Drug Use History: None Reported - Past Family History Father Family Medical History: Unable to Obtain Mother Family Medical History: No Reported History General Exam Limitations: no limitations General appearance: alert, in no apparent distress, anxious Head exam: Present: atraumatic, normocephalic, normal inspection Eye exam: Present: normal appearance, PERRL, EOMI. Absent: scleral icterus, conjunctival injection, periorbital swelling ENT exam: Present: normal exam, mucous membranes moist Neck exam: Present: normal inspection. Absent: tenderness, meningismus, lymphadenopathy Respiratory exam: Present: normal lung sounds bilaterally. Absent: respiratory distress, wheezes, rales, rhonchi, stridor Cardiovascular Exam: Present: regular rate, normal rhythm, normal heart sounds. Absent: systolic murmur, diastolic murmur, rubs, gallop, clicks GI/Abdominal exam: Present: soft, normal bowel sounds. Absent: distended, tenderness, guarding, rebound, rigid Extremities exam: Present: normal inspection, full ROM, normal capillary refill. Absent: tenderness, pedal edema, joint swelling, calf tenderness Back exam: Present: normal inspection Neurological exam: Present: alert, oriented X3, CN II-XII intact Psychiatric exam: Present: normal affect, normal mood Skin exam: Present: warm, dry, intact, normal color. Absent: rash Course Vital Signs 12/03/16 12/03/16 12/03/16 05:39 07:56 09:27 Temperature 97.9 F 97.3 F L Pulse Rate 82 72 72 Respiratory 18 20 18 Rate Blood Pressure 126/83 129/77 123/70 O2 Sat by Pulse 100 99 96 Oximetry Medical Decision Making - Medical Decision Making 31 mallei are for evaluation of chronic pain. Patient was given pain control and anxiety K this time. Patient is able to ambulate without difficulty and can be discharged home Disposition Clinical Impression: Thoracic back pain, Mid back pain Disposition: HOME SELF-CARE Condition: Good Instructions: Acute Low Back Pain (ED), Chronic Back Pain (ED) Prescriptions: HYDROcodone/APAP 5-325MG [[place] 5-325] 1 tab PO Q6HR PRN #30 tab PRN Reason: Pain LORazepam [Ativan] 1 mg PO BID #30 tab Naproxen [Naprosyn] 500 mg PO Q12HR #30 tab Referrals: Raul Schwartz Jr, [Primary Care Provider] - 1-2 days
[2016-12-03 07:58] VITALS: PULSE 72
[2016-12-03 09:29] VITALS: BP 123/70; RESP 18; TEMP 97.3
== END 2016-12-03 09:25 | disposition home or self-care (01) ==
LOC: SUPCPDRO 05:35 → EC 05:35
DX: M54.6 Pain in thoracic spine (principal); F41.9 Anxiety disorder, unspecified; F17.200 Nicotine dependence, unspecified, uncomplicated; Z88.6 Allergy status to analgesic agent; Z79.899 Other long term (current) drug therapy
CPT/HCPCS: 99284; 96372; J1170

== ENCOUNTER 2016-12-24 09:37 | Emergency (ER) | payer OTHER ==
[2016-12-24] MEDS ORDERED: ORPHENADRINE 30 MG/ML 2 ML VIAL IVP STA (10:03)
[2016-12-24] MEDS ORDERED: HYDROmorphone 1 MG/ML 1 ML SYRINGE IVP STA (10:04)
[2016-12-24] MEDS ORDERED: LORazepam 2 MG/ML SYRINGE IV STA (10:04)
--- NOTE | 2016-12-24 10:11 | ED ---
Back Pain HPI - General Chief Complaint: Back Pain/Injury Stated Complaint: Back Pain Time Seen by Provider: 12/24/16 09:51 Source: patient, EMS, RN notes reviewed, old records reviewed Limitations: no limitations - History of Present Illness Initial Comments: This is a 31-year-old male presenting to emergency Department chief complaint of an acute exacerbation of chronic back pain. Patient reports that he has herniated disc T9 through T10. Patient states that he is currently being treated at [facility]. She reports that his physician Dameon Hart has placed him on narcotic medication including Zanaflex, anti- inflammatory medicines. Patient reports that that is not helping with his current pain. He reports he did help some any move a mattress yesterday but was feeling fine afterwards. He reports that he woke up today and severe pain and a collapsed on the floor. He did call EMS to transport him here. Patient states that he has had no loss of bowel or bladder control. Denies any other recent falls or trauma to his back. He states that he's had recent MRIs and CAT scans which have all been stable but continued to report that he has severe degenerative disc disease. He states that he has to follow-up with him for [facility] regards to getting an epidural and possible surgery is not working. Denies any numbness or tingling down the legs.Patient denies any recent fever, chills, shortness of breath, chest pain, back pain, abdominal pain , nausea vomiting, numbness or tingling, dysuria or hematuria, constipation or diarrhea, headaches or visual changes, or any other current symptoms - Related Data Home Medications Medication Instructions Recorded Confirmed Bisoprolol-Hctz 10-6.25 mg [Ziac 1 tab PO DAILY 12/03/16 12/03/16 10-6.25 MG] Diazepam [Valium] 5 mg PO HS 12/03/16 12/03/16 Previous Rx's Medication Instructions Recorded HYDROcodone/APAP 5-325MG [[place] 1 tab PO Q6HR PRN #30 tab 12/03/16 5-325] LORazepam [Ativan] 1 mg PO BID #30 tab 12/03/16 Naproxen [Naprosyn] 500 mg PO Q12HR #30 tab 12/03/16 HYDROcodone/APAP 5-325MG [[place] 1 tab PO Q6HR PRN #10 tab 12/24/16 5-325] LORazepam [Ativan] 0.5 mg PO BID #12 tab 12/24/16 Allergies Allergy/AdvReac Type Severity Reaction Status Date / Time ketorolac tromethamine Allergy Rash/Hives Verified 12/03/16 07:45 [From Toradol] Review of Systems ROS Statement: Those systems with pertinent positive or pertinent negative responses have been documented in the HPI. ROS Other: All systems not noted in ROS Statement are negative. Past Medical History Past Medical History: Liver Disease, Musculoskeletal Disorder Additional Past Medical History / Comment(s): diverticulitis, IBS, Hepatitis C, chronic back pain. States Hepatitis C was acute and now it's gone - per Dr. Chapin History of Any Multi-Drug Resistant Organisms: None Reported Past Surgical History: Orthopedic Surgery Additional Past Surgical History / Comment(s): left shoulder, left ankle; 8 teeth extracted, [facility] Past Anesthesia/Blood Transfusion Reactions: No Reported Reaction Past Psychological History: Anxiety, Depression Smoking Status: Current every day smoker Past Alcohol Use History: None Reported Past Drug Use History: None Reported - Past Family History Father Family Medical History: Unable to Obtain Mother Family Medical History: No Reported History General Exam - General Exam Comments Initial Comments: Well-appearing 31-year-old male. Patient does appear anxious. Limitations: no limitations General appearance: alert, in no apparent distress Head exam: Present: atraumatic, normocephalic, normal inspection Eye exam: Present: normal appearance, PERRL, EOMI. Absent: scleral icterus, conjunctival injection, periorbital swelling ENT exam: Present: normal exam, mucous membranes moist Neck exam: Present: normal inspection. Absent: tenderness, meningismus, lymphadenopathy Respiratory exam: Present: normal lung sounds bilaterally. Absent: respiratory distress, wheezes, rales, rhonchi, stridor Cardiovascular Exam: Present: regular rate, normal rhythm, normal heart sounds. Absent: systolic murmur, diastolic murmur, rubs, gallop, clicks GI/Abdominal exam: Present: soft, normal bowel sounds. Absent: distended, tenderness, guarding, rebound, rigid Extremities exam: Present: normal inspection, full ROM, normal capillary refill. Absent: tenderness, pedal edema, joint swelling, calf tenderness Back exam: Present: normal inspection, tenderness (Patient reports severe tenderness over the midthoracic spine. Patient states that this is chronic.) Neurological exam: Present: alert, oriented X3, CN II-XII intact Psychiatric exam: Present: normal affect, normal mood Course Vital Signs 12/24/16 12/24/16 09:43 10:42 Temperature 97.4 F L Pulse Rate 120 H 112 H Respiratory 24 18 Rate Blood Pressure 129/80 128/75 O2 Sat by Pulse 97 97 Oximetry - Reevaluation(s) Reevaluation #1: 12/24/16 11:02 Patient was reevaluated and resting comfortably this time. Patient is now complaining of severe anxiety. He reports that his primary care provider tomorrow with his chronic anxiety medication. Medical Decision Making - Medical Decision Making This is a 31-year-old male presenting to emergency Department chief complaint of an acute exacerbation of chronic back pain. Patient reports that he has herniated disc T9 through T10. Patient states that he is currently being treated at [facility]. She reports that his physician Dameon Hart has placed him on narcotic medication including Zanaflex, anti- inflammatory medicines. Patient reports that that is not helping with his current pain. He reports he did help some any move a mattress yesterday but was feeling fine afterwards. He reports that he woke up today and severe pain and a collapsed on the floor. He did call EMS to transport him here. Patient states that he has had no loss of bowel or bladder control. Denies any other recent falls or trauma to his back. He states that he's had recent MRIs and CAT scans which have all been stable but continued to report that he has severe degenerative disc disease. He states that he has to follow-up with him for Medical Center regards to getting an epidural and possible surgery is not working. Patient is given a IV Norflex, Ativan and .5 Dilaudid. Patient also complaining of increased anxiety. She'll be discharged with a short course of pain medications and anxiety medicine. Discussed that he needs to follow-up in regards to further pain medication his neurologist. Discussed that I can write him for a short course of radiation for an acute exacerbation however he needs to follow-up. Patient agrees to plan will comply. Return parameters were discussed. Disposition Clinical Impression: Anxiety, Chronic pain Disposition: HOME SELF-CARE Condition: Good Instructions: Generalized Anxiety Disorder (ED), Chronic Back Pain (ED) Additional Instructions: Patient has a follow-up with ear pain specialists and neurosis surgeons in [facility]. Take medications as directed. Return if any alarming signs or symptoms occur including loss of bowel or bladder function. Prescriptions: HYDROcodone/APAP 5-325MG [[place] 5-325] 1 tab PO Q6HR PRN #10 tab PRN Reason: Pain LORazepam [Ativan] 0.5 mg PO BID #12 tab Referrals: Raul Schwartz Jr, DO [Primary Care Provider] - 1-2 days Time of Disposition: 11:05
[2016-12-24 10:43] VITALS: RESP 18
[2016-12-24 11:35] VITALS: BP 129/96; PULSE 97; TEMP 97.3
== END 2016-12-24 11:34 | disposition home or self-care (01) ==
LOC: EC 09:37
DX: M54.6 Pain in thoracic spine (principal); G89.29 Other chronic pain; F41.9 Anxiety disorder, unspecified; F17.200 Nicotine dependence, unspecified, uncomplicated; Z88.6 Allergy status to analgesic agent; Z79.899 Other long term (current) drug therapy
CPT/HCPCS: 99284; 96374; 96375 ×2; J2060; J2360; J1170

== ENCOUNTER 2016-12-25 14:22 | Emergency (ER) | payer OTHER ==
[2016-12-25 14:31] VITALS: BP 113/65; PULSE 85; RESP 18; TEMP 98.2
[2016-12-25] MEDS ORDERED: DEXAMETHASONE SOD PHOSPHATE 4 MG/ML 1 ML VIAL IV STA (14:43)
--- NOTE | 2016-12-25 14:56 | ED ---
General Adult HPI - General Chief complaint: Back Pain/Injury Stated complaint: back pain Hx herniation Time Seen by Provider: 12/25/16 14:25 Source: patient, EMS, RN notes reviewed, old records reviewed Mode of arrival: EMS Limitations: no limitations - History of Present Illness Initial comments: Chief complaint history of present illness a 31-year-old male with chronic back pain and anxiety. The patient was seen emergency room every day for the past several days. He states he called his pain management doctor at [facility] told him to come the emergency room. Received 100 mg of fentanyl by EMS on the way in. The patient was given 10 [place] yesterday he is going through 8 already he's also going through 6 Ativan. Recently he saw his pain management doctor [facility], 3 weeks ago. He states he was taken off medications and placed on gabapentin, naproxen and Zanaflex. He states waiting for records from this hospital sent to the hospital for evaluation concerning steroid shots and/or surgery. - Related Data Home Medications Medication Instructions Recorded Confirmed Bisoprolol-Hctz 10-6.25 mg [Ziac 1 tab PO DAILY 12/03/16 12/24/16 10-6.25 MG] Gabapentin [Neurontin] 300 mg PO TID 12/24/16 12/24/16 tiZANidine HCL [Zanaflex] 8 mg PO DAILY PRN 12/24/16 12/24/16 Previous Rx's Medication Instructions Recorded HYDROcodone/APAP 5-325MG [[place] 1 tab PO Q6HR PRN #10 tab 12/24/16 5-325] LORazepam [Ativan] 0.5 mg PO BID #12 tab 12/24/16 Dexamethasone 0.75 mg PO DAILY #12 tablet 12/25/16 Allergies Allergy/AdvReac Type Severity Reaction Status Date / Time ketorolac tromethamine Allergy Rash/Hives Verified 12/25/16 14:31 [From Toradol] Review of Systems ROS Statement: Those systems with pertinent positive or pertinent negative responses have been documented in the HPI. Review of systems no headache chest pain shows breath GI/, occasions of problems no change since yesterday. His chronic pain. Patient reports that 2 days ago he tried to lift a mattress which increased his pain. He states he has difficulty mowing the lawn. He was told not to lift mattresses and not to mold the lawn until he gets his back issues straightened out. Again no changes , no numbness no tingling no difficulty urinating or bowel movements. Past medical problems significant for chronic back pain. He reports having had liver disease hepatitis C which is now gone. History of diverticulitis irritable bowel syndrome and anxiety depression. Surgeries include left shoulder left ankle surgery. Family history noncontributory has ALLERGIES to Toradol. He smokes every day. Denies alcohol use ROS Other: All systems not noted in ROS Statement are negative. Past Medical History Past Medical History: Liver Disease, Musculoskeletal Disorder Additional Past Medical History / Comment(s): diverticulitis, IBS, Hepatitis C, chronic back pain. States Hepatitis C was acute and now it's gone - per Dr. Chapin History of Any Multi-Drug Resistant Organisms: None Reported Past Surgical History: Orthopedic Surgery Additional Past Surgical History / Comment(s): left shoulder, left ankle; 8 teeth extracted, [facility] Past Anesthesia/Blood Transfusion Reactions: No Reported Reaction Past Psychological History: Anxiety, Depression Smoking Status: Current every day smoker Past Alcohol Use History: None Reported Past Drug Use History: None Reported - Past Family History Father Family Medical History: Unable to Obtain Mother Family Medical History: No Reported History General Exam - General Exam Comments Initial Comments: Been no changes since yesterday's physical examination performed in the emergency room. Chronic pain. Patient received fentanyl 100 mg en route by EMS because of his pain. Patient still asking for more IV pain medication. It was explained to the patient that his pain management doctor wants him to be on gabapentin naproxen and Zanaflex and this is what she stay on. He has several Ativan and [place] left at home is advised as read this out do not take together. Advised to call his pain management doctor tonight and tomorrow the next day she began given the [employer] sooner. Also told to check on his medical records so that his chronic pain management doctor can alter treatment including epidural shots as deemed necessary. The patient is not having any difficulty urinating or bowel movements. No complaint of numbness or tingling. Vital signs show temperature 97.7 pulse 97 respiratory rate 18 pulse ox 94% room air blood pressure 129/96. Patient received Decadron 8 mg IV push and be put on Decadron dose pack to be taken as directed. Limitations: no limitations Course Vital Signs 12/25/16 14:26 Temperature 98.2 F Pulse Rate 85 Respiratory 18 Rate Blood Pressure 113/65 O2 Sat by Pulse 96 Oximetry Medical Decision Making - Medical Decision Making Continue home medications. Call and discuss management with your Pain management doctor. Take and complete the Decadron dose pack. Disposition Clinical Impression: Chronic back pain greater than 3 months duration Disposition: HOME SELF-CARE Condition: Fair Instructions: Chronic Back Pain (ED) Additional Instructions: Complete medications provided yesterday and start medications provided today. Call follow up with your chronic pain management doctor. Take medications prescribed by her pain management doctor. Prescriptions: Dexamethasone 0.75 mg PO DAILY #12 tablet Referrals: Raul Schwartz Jr, DO [Primary Care Provider] - 1-2 days Time of Disposition: 14:52
== END 2016-12-25 15:15 | disposition home or self-care (01) ==
LOC: EC 14:22
DX: G89.29 Other chronic pain (principal); M54.9 Dorsalgia, unspecified; F41.9 Anxiety disorder, unspecified; R03.0 Elevated blood-pressure reading, without diagnosis of hypertension; F17.200 Nicotine dependence, unspecified, uncomplicated; Z88.5 Allergy status to narcotic agent; Z79.899 Other long term (current) drug therapy
CPT/HCPCS: 99284; 96374; J1100

== ENCOUNTER 2017-01-20 12:43 | Emergency (ER) | payer OTHER ==
--- NOTE | 2017-01-20 13:15 | ED ---
General Adult HPI - General Chief complaint: Chest Pain Stated complaint: Chest Pain/Anxiety Time Seen by Provider: 01/20/17 12:45 Source: patient, RN notes reviewed Mode of arrival: ambulatory Limitations: no limitations - History of Present Illness Initial comments: This is a 31-year-old male who presents emergency Department complaining that he is not been taking anything for his anxiety because he ran out of his Xanax. Patient states today he started having some shortness of breath but he believes is because he is extremely anxious. Patient states he had a little chest tightness. Patient denies any cough patient denies any sputum production. Patient denies any nausea vomiting diarrhea. Patient denies any abdominal pain. Patient denies any dysuria hematuria urinary frequency. Patient denies any headache patient denies numbness weakness. - Related Data Home Medications Medication Instructions Recorded Confirmed Bisoprolol-Hctz 10-6.25 mg [Ziac 1 tab PO DAILY 12/03/16 01/20/17 10-6.25 MG] Gabapentin [Neurontin] 300 mg PO TID 12/24/16 01/20/17 tiZANidine [Zanaflex] 4 mg PO Q8H PRN 01/20/17 01/20/17 Allergies Allergy/AdvReac Type Severity Reaction Status Date / Time ketorolac tromethamine Allergy Rash/Hives Verified 01/20/17 13:56 [From Toradol] Review of Systems ROS Statement: Those systems with pertinent positive or pertinent negative responses have been documented in the HPI. ROS Other: All systems not noted in ROS Statement are negative. Past Medical History Past Medical History: Liver Disease, Musculoskeletal Disorder Additional Past Medical History / Comment(s): diverticulitis, IBS, Hepatitis C, chronic back pain. States Hepatitis C was acute and now it's gone - per Dr. Chapin History of Any Multi-Drug Resistant Organisms: None Reported Past Surgical History: Orthopedic Surgery Additional Past Surgical History / Comment(s): left shoulder, left ankle; 8 teeth extracted, [facility] Past Anesthesia/Blood Transfusion Reactions: No Reported Reaction Past Psychological History: Anxiety, Depression Smoking Status: Current every day smoker Past Alcohol Use History: None Reported Past Drug Use History: None Reported - Past Family History Father Family Medical History: Unable to Obtain Mother Family Medical History: No Reported History General Exam - General Exam Comments Initial Comments: GENERAL: Patient is well-developed and well-nourished. Patient is nontoxic and well- hydrated and is in mild distress. ENT: Neck is soft and supple. No significant lymphadenopathy is noted. Oropharynx is clear. Moist mucous membranes. Neck has full range of motion without eliciting any pain. EYES: The sclera were anicteric and conjunctiva were pink and moist. Extraocular movements were intact and pupils were equal round and reactive to light. Eyelids were unremarkable. PULMONARY: Patient is to. Good breath sounds bilaterally. No audible rales rhonchi or wheezing was noted. CARDIOVASCULAR: Patient is tachycardic ABDOMEN: Soft and nontender with normal bowel sounds. No palpable organomegaly was noted. There is no palpable pulsatile mass. SKIN: Skin is clear with no lesions or rashes and otherwise unremarkable. NEUROLOGIC: Patient is alert and oriented x3. Cranial nerves II through XII are grossly intact. Motor and sensory are also intact. Normal speech, volume and content. Symmetrical smile. MUSCULOSKELETAL: Normal extremities with adequate strength and full range of motion. No lower extremity swelling or edema. No calf tenderness. LYMPHATICS: No significant lymphadenopathy is noted PSYCHIATRIC: Normal psychiatric evaluation. Normal interpersonal interactions appears functionally intact in deals appropriately with others. No signs of depression. Patient is moderately anxious Limitations: no limitations Course Vital Signs 01/20/17 01/20/17 12:45 14:10 Temperature 100.4 F H 98.1 F Pulse Rate 111 H 97 Respiratory 20 21 Rate Blood Pressure 150/86 134/82 O2 Sat by Pulse 98 96 Oximetry Medical Decision Making - Medical Decision Making EKG shows sinus tachycardia at 102 bpm IN interval 164 QRS is 94 QT interval 338 QTC is 440. Patient's EKG shows no ST segment elevation or depression. - Lab Data Result diagrams: 01/20/17 13:01 01/20/17 13:01 Lab Results 01/20/17 01/20/17 01/20/17 Range/Units 13:01 13:01 13:01 WBC 10.6 (3.8-10.6) k/uL RBC 5.61 (4.30-5.90) m/uL Hgb 16.6 (13.0-17.5) gm/dL Hct 48.2 (39.0-53.0) % MCV 86.0 (80.0-100.0) fL MCH 29.6 (25.0-35.0) pg MCHC 34.4 (31.0-37.0) g/dL RDW 14.2 (11.5-15.5) % Plt Count 245 (150-450) k/uL Neutrophils % 73 % Lymphocytes % 18 % Monocytes % 4 % Eosinophils % 3 % Basophils % 1 % Neutrophils # 7.7 (1.3-7.7) k/uL Lymphocytes # 1.9 (1.0-4.8) k/uL Monocytes # 0.4 (0-1.0) k/uL Eosinophils # 0.4 (0-0.7) k/uL Basophils # 0.1 (0-0.2) k/uL Sodium 141 (137-145) mmol/L Potassium 4.4 (3.5-5.1) mmol/L Chloride 111 H (98-107) mmol/L Carbon Dioxide 18 L (22-30) mmol/L Anion Gap 12 mmol/L BUN 15 (9-20) mg/dL Creatinine 1.01 (0.66-1.25) mg/dL Est GFR (MDRD) Af Amer >60 (>60 ml/min/1.73 sqM) Est GFR (MDRD) Non-Af >60 (>60 ml/min/1.73 sqM) Glucose 106 H (74-99) mg/dL Calcium 9.3 (8.4-10.2) mg/dL Magnesium 2.2 (1.6-2.3) mg/dL Total Bilirubin 0.5 (0.2-1.3) mg/dL AST 19 (17-59) U/L ALT 34 (21-72) U/L Alkaline Phosphatase 68 (38-126) U/L Total Creatine Kinase 109 (55-170) U/L CK-MB (CK-2) <0.2 (0.0-2.4) ng/mL CK-MB (CK-2) Rel Index Troponin I <0.012 (0.000-0.034) ng/mL Total Protein 7.2 (6.3-8.2) g/dL Albumin 4.3 (3.5-5.0) g/dL Disposition Clinical Impression: Drug-seeking behavior Disposition: HOME SELF-CARE Condition: Good Referrals: Lan James MD [Primary Care Provider] - 1-2 days Time of Disposition: 14:27
[2017-01-20] MEDS ORDERED: LORazepam 2 MG/ML SYRINGE IV STA (13:17)
[2017-01-20 13:39] LABS: Basophils # (A) 0.1 k/uL (0-0.2); Basophils % (A) 1 %; CH 30.9; CHCM 36.1; Eosinophils # (A) 0.4 k/uL (0-0.7); Eosinophils % (A) 3 %; HCT 48.2 % (39.0-53.0); HDW 2.91; HGB 16.6 gm/dL (13.0-17.5); Luc # (Auto) 0.15; Luc % (Auto) 1; Lymphocytes # (A) 1.9 k/uL (1.0-4.8); Lymphocytes % (A) 18 %; MCH 29.6 pg (25.0-35.0); MCHC 34.4 g/dL (31.0-37.0); Mean Platelet Volume 7.2; Monocytes # (A) 0.4 k/uL (0-1.0); Monocytes % (A) 4 %; Neutrophils # (A) 7.7 k/uL (1.3-7.7); Neutrophils % (A) 73 %; RBC 5.61 m/uL (4.30-5.90); RDW 14.2 % (11.5-15.5); WBC 10.6 k/uL (3.8-10.6)
[2017-01-20 13:48] LABS: ALT 34 U/L (21-72); AST 19 U/L (17-59); Alkaline Phosphatase 68 U/L (38-126); Anion Gap 12 mmol/L; Blood Urea Nitrogen 15 mg/dL (9-20); Calcium 9.3 mg/dL (8.4-10.2); Carbon Dioxide 18 mmol/L (22-30); Chloride 111 mmol/L (98-107); Glucose 106 mg/dL (74-99); Magnesium 2.2 mg/dL (1.6-2.3); Non-African American GFR(MDRD) >60 (>60 ml/min/1.73 sqM); Potassium 4.4 mmol/L (3.5-5.1); Sodium 141 mmol/L (137-145); Total Bilirubin 0.5 mg/dL (0.2-1.3); Total Protein 7.2 g/dL (6.3-8.2)
--- NOTE | 2017-01-20 13:52 | XR ---
EXAMINATION TYPE: XR chest 2V DATE OF EXAM: 01/20/2017 COMPARISON: 07/13/2016 HISTORY: 31-year-old male with chest pain and shortness of breath TECHNIQUE: PA and lateral views FINDINGS: The cardiomediastinal silhouette, aorta, and pulmonary vasculature are within normal limits. There is some strandy atelectasis in the mid and lower lungs. Otherwise, lungs and pleural spaces are clear. IMPRESSION: No acute cardiopulmonary process.
[2017-01-20 14:03] LABS: Creatine Kinase 109 U/L (55-170)
[2017-01-20 14:15] LABS: Creatine Kinase MB <0.2 ng/mL (0.0-2.4); Troponin I <0.012 ng/mL (0.000-0.034)
[2017-01-20 14:38] VITALS: BP 132/91; PULSE 94; RESP 18; TEMP 99.4
== END 2017-01-20 14:36 | disposition home or self-care (01) ==
LOC: EC 12:43
DX: R07.89 Other chest pain (principal); R06.02 Shortness of breath; Z76.5 Malingerer [conscious simulation]; F17.200 Nicotine dependence, unspecified, uncomplicated; Z79.899 Other long term (current) drug therapy; Z88.6 Allergy status to analgesic agent
CPT/HCPCS: 36415; 80053; 82550; 82553; 83735; 84484; 85025; 71020; 99285; 96374; J2060

== ENCOUNTER → 2017-02-15 | Outpatient (CLI) | payer OTHER ==
--- NOTE | 2017-02-15 09:54 | XR ---
EXAMINATION TYPE: XR chest 2V DATE OF EXAM: 02/15/2017 COMPARISON: Chest x-ray January 20, 2017 HISTORY: Annual physical exam TECHNIQUE: Frontal and lateral views of the chest are obtained. FINDINGS: Slightly diminished inspiration on current study is seen. There is no focal air space opaci ty, pleural effusion, or pneumothorax seen. The cardiac silhouette size is within normal limits. T he osseous structures are intact. IMPRESSION: No acute cardiopulmonary process. No significant change from prior.
[2017-02-15 10:05] LABS: Appearance,Urine Clear (Clear); Bilirubin,Urine Negative (Negative); CH 30.5; Glucose,Urine (UA) Negative (Negative); HDW 2.91; HGB 16.3 gm/dL (13.0-17.5); Ketones,Urine Negative (Negative); Leukocyte Esterase,Urine Negative (Negative); MCH 30.3 pg (25.0-35.0); MCHC 35.5 g/dL (31.0-37.0); MCV 85.3 fL (80.0-100.0); Mean Platelet Volume 6.6; Nitrite,Urine Negative (Negative); PH, Urine 5.5 (5.0-8.0); Protein,Urine Negative (Negative); RDW 13.9 % (11.5-15.5); Specific Gravity,Urine 1.008 (1.001-1.035); UA Billing (MACRO vs. MICRO) CHEM; Urobilinogen,Urine <2.0 mg/dL (<2.0); WBC 7.8 k/uL (3.8-10.6)
[2017-02-15 10:23] LABS: ALT 44 U/L (21-72); AST 26 U/L (17-59); Alkaline Phosphatase 54 U/L (38-126); Anion Gap 11 mmol/L; Blood Urea Nitrogen 16 mg/dL (9-20); Calcium 9.4 mg/dL (8.4-10.2); Carbon Dioxide 24 mmol/L (22-30); Chloride 103 mmol/L (98-107); Cholesterol 174 mg/dL (<200); Glucose 98 mg/dL (74-99); HDL Cholesterol 40 mg/dL (40-60); Non-African American GFR(MDRD) >60 (>60 ml/min/1.73 sqM); Potassium 4.4 mmol/L (3.5-5.1); Sodium 138 mmol/L (137-145); Total Bilirubin 0.5 mg/dL (0.2-1.3); Total Protein 7.3 g/dL (6.3-8.2)
== END | disposition home or self-care (01) ==
LOC: RADXRMAIN 09:21
PROVIDERS: ATTEND Internal Medicine
DX: Z00.00 Encounter for general adult medical examination without abnormal findings (principal); E78.2 Mixed hyperlipidemia; N39.0 Urinary tract infection, site not specified; I11.9 Hypertensive heart disease without heart failure; M54.9 Dorsalgia, unspecified
CPT/HCPCS: 71020; 80053; 80061; 81003; 84439; 84443; 85027

== ENCOUNTER 2017-08-02 10:54 | Emergency (ER) | payer OTHER ==
[2017-08-02 11:01] VITALS: TEMP 98.7
[2017-08-02] MEDS ORDERED: SODIUM CHLORIDE 0.9% 1,000 ML IV STA ×2 (11:06)
[2017-08-02 11:36] LABS: Basophils # (A) 0.1 k/uL (0-0.2); Basophils % (A) 1 %; Eosinophils # (A) 0.3 k/uL (0-0.7); Eosinophils % (A) 3 %; HCT 43.6 % (39.0-53.0); HGB 15.2 gm/dL (13.0-17.5); Lymphocytes # (A) 2.2 k/uL (1.0-4.8); Lymphocytes % (A) 26 %; MCH 29.5 pg (25.0-35.0); MCHC 34.8 g/dL (31.0-37.0); MCV 84.8 fL (80.0-100.0); Mean Platelet Volume 6.5; Monocytes # (A) 0.4 k/uL (0-1.0); Monocytes % (A) 5 %; Neutrophils # (A) 5.3 k/uL (1.3-7.7); Neutrophils % (A) 64 %; Platelet Count 260 k/uL (150-450); RBC 5.15 m/uL (4.30-5.90); RDW 12.3 % (11.5-15.5); WBC 8.3 k/uL (3.8-10.6)
[2017-08-02 11:46] LABS: ALT 28 U/L (21-72); AST 15 U/L (17-59); Alkaline Phosphatase 69 U/L (38-126); Anion Gap 9 mmol/L; Blood Urea Nitrogen 15 mg/dL (9-20); Calcium 9.8 mg/dL (8.4-10.2); Carbon Dioxide 23 mmol/L (22-30); Chloride 109 mmol/L (98-107); Glucose 115 mg/dL (74-99); Lipase 129 U/L (23-300); Magnesium 1.9 mg/dL (1.6-2.3); Potassium 4.3 mmol/L (3.5-5.1); Sodium 141 mmol/L (137-145); Total Bilirubin 0.3 mg/dL (0.2-1.3); Total Protein 6.8 g/dL (6.3-8.2)
--- NOTE | 2017-08-02 11:48 | ED ---
General Adult HPI - General Chief complaint: Chest Pain Stated complaint: Palpitations Time Seen by Provider: 08/02/17 11:05 Source: patient, RN notes reviewed, old records reviewed Mode of arrival: wheelchair - History of Present Illness Initial comments: This is a 32-year-old male the ER for evaluation of chest pain. Patient has significant anterior chest pain with heaviness, episodic right underneath his left breast. Patient has medical history of smoking and high blood pressure. Patient states his pain been on and off for a week. No fevers or cough or congestion no travel history no sick contacts no leg or calf pain. - Related Data Home Medications Medication Instructions Recorded Confirmed ALPRAZolam [Xanax] 0.5 mg PO TID PRN 05/19/17 08/02/17 Atenolol [Tenormin] 50 mg PO DAILY 05/19/17 08/02/17 Enalapril [Vasotec] 5 mg PO DAILY 05/19/17 08/02/17 oxyCODONE HCL/ACETAMINOPHEN 1 tab PO QID PRN 05/19/17 08/02/17 [Percocet 10-325 mg] Dicyclomine [Bentyl] 10 mg PO QID 08/02/17 08/02/17 Sertraline [Zoloft] 100 mg PO DAILY 08/02/17 08/02/17 Allergies Allergy/AdvReac Type Severity Reaction Status Date / Time ketorolac tromethamine Allergy Rash/Hives Verified 08/02/17 11:38 [From Toradol] Review of Systems ROS Statement: Those systems with pertinent positive or pertinent negative responses have been documented in the HPI. ROS Other: All systems not noted in ROS Statement are negative. Past Medical History Past Medical History: Liver Disease, Musculoskeletal Disorder Additional Past Medical History / Comment(s): diverticulitis, IBS, Hepatitis C, chronic back pain. States Hepatitis C was acute and now it's gone - per Dr. Chpain History of Any Multi-Drug Resistant Organisms: None Reported Past Surgical History: Orthopedic Surgery Additional Past Surgical History / Comment(s): left shoulder, left ankle; 8 teeth extracted, [facility] Past Anesthesia/Blood Transfusion Reactions: No Reported Reaction Past Psychological History: Anxiety, Depression Smoking Status: Current every day smoker Past Alcohol Use History: None Reported Past Drug Use History: None Reported - Past Family History Father Family Medical History: Unable to Obtain Mother Family Medical History: No Reported History General Exam General appearance: alert, in no apparent distress Head exam: Present: atraumatic, normocephalic, normal inspection Eye exam: Present: normal appearance, PERRL, EOMI. Absent: scleral icterus, conjunctival injection, periorbital swelling ENT exam: Present: normal exam, mucous membranes moist Neck exam: Present: normal inspection. Absent: tenderness, meningismus, lymphadenopathy Respiratory exam: Present: normal lung sounds bilaterally. Absent: respiratory distress, wheezes, rales, rhonchi, stridor Cardiovascular Exam: Present: normal rhythm, tachycardia, normal heart sounds. Absent: systolic murmur, diastolic murmur, rubs, gallop, clicks GI/Abdominal exam: Present: soft, normal bowel sounds. Absent: distended, tenderness, guarding, rebound, rigid Extremities exam: Present: normal inspection, full ROM, normal capillary refill. Absent: tenderness, pedal edema, joint swelling, calf tenderness Back exam: Present: normal inspection Neurological exam: Present: alert, oriented X3, CN II-XII intact Psychiatric exam: Present: normal affect, normal mood Skin exam: Present: warm, dry, intact, normal color. Absent: rash Course Vital Signs 08/02/17 08/02/17 10:58 12:24 Temperature 98.7 F Pulse Rate 120 H 82 Respiratory 118 H 18 Rate Blood Pressure 162/103 131/78 O2 Sat by Pulse 99 97 Oximetry - Reevaluation(s) Reevaluation #1: 08/02/17 13:36 Patient does have episodic chest pain here in the ER, currently pain-free EKG Findings - EKG Comments: EKG Findings:: EKG shows normal sinus rhythm rate of 95, [place] 174, QRS 92, QTc 409 Medical Decision Making - Medical Decision Making 32 male the ER with chest pain nonspecific tachycardia, patient was sent in for evaluation by family doctor, tachycardia has resolved, chest pain is resolved. Troponin EKG and CT are negative - Lab Data Result diagrams: 08/02/17 11:20 08/02/17 11:20 Lab Results 08/02/17 08/02/17 08/02/17 Range/Units 11:20 11:20 11:20 WBC 8.3 (3.8-10.6) k/uL RBC 5.15 (4.30-5.90) m/uL Hgb 15.2 (13.0-17.5) gm/dL Hct 43.6 (39.0-53.0) % MCV 84.8 (80.0-100.0) fL MCH 29.5 (25.0-35.0) pg MCHC 34.8 (31.0-37.0) g/dL RDW 12.3 (11.5-15.5) % Plt Count 260 (150-450) k/uL Neutrophils % 64 % Lymphocytes % 26 % Monocytes % 5 % Eosinophils % 3 % Basophils % 1 % Neutrophils # 5.3 (1.3-7.7) k/uL Lymphocytes # 2.2 (1.0-4.8) k/uL Monocytes # 0.4 (0-1.0) k/uL Eosinophils # 0.3 (0-0.7) k/uL Basophils # 0.1 (0-0.2) k/uL PT (9.0-12.0) sec INR (<1.2) APTT (22.0-30.0) sec D-Dimer (<0.60) mg/L FEU Sodium 141 (137-145) mmol/L Potassium 4.3 (3.5-5.1) mmol/L Chloride 109 H (98-107) mmol/L Carbon Dioxide 23 (22-30) mmol/L Anion Gap 9 mmol/L BUN 15 (9-20) mg/dL Creatinine 0.83 (0.66-1.25) mg/dL Est GFR (MDRD) Af Amer >60 (>60 ml/min/1.73 sqM) Est GFR (MDRD) Non-Af >60 (>60 ml/min/1.73 sqM) Glucose 115 H (74-99) mg/dL Calcium 9.8 (8.4-10.2) mg/dL Magnesium 1.9 (1.6-2.3) mg/dL Total Bilirubin 0.3 (0.2-1.3) mg/dL AST 15 L (17-59) U/L ALT 28 (21-72) U/L Alkaline Phosphatase 69 (38-126) U/L Total Creatine Kinase 76 (55-170) U/L CK-MB (CK-2) 0.3 (0.0-2.4) ng/mL CK-MB (CK-2) Rel Index 0.4 Troponin I <0.012 (0.000-0.034) ng/mL Total Protein 6.8 (6.3-8.2) g/dL Albumin 4.0 (3.5-5.0) g/dL Lipase 129 (23-300) U/L 08/02/17 Range/Units 11:20 WBC (3.8-10.6) k/uL RBC (4.30-5.90) m/uL Hgb (13.0-17.5) gm/dL Hct (39.0-53.0) % MCV (80.0-100.0) fL MCH (25.0-35.0) pg MCHC (31.0-37.0) g/dL RDW (11.5-15.5) % Plt Count (150-450) k/uL Neutrophils % % Lymphocytes % % Monocytes % % Eosinophils % % Basophils % % Neutrophils # (1.3-7.7) k/uL Lymphocytes # (1.0-4.8) k/uL Monocytes # (0-1.0) k/uL Eosinophils # (0-0.7) k/uL Basophils # (0-0.2) k/uL PT 9.4 (9.0-12.0) sec INR 0.9 (<1.2) APTT 22.3 (22.0-30.0) sec D-Dimer 0.23 (<0.60) mg/L FEU Sodium (137-145) mmol/L Potassium (3.5-5.1) mmol/L Chloride (98-107) mmol/L Carbon Dioxide (22-30) mmol/L Anion Gap mmol/L BUN (9-20) mg/dL Creatinine (0.66-1.25) mg/dL Est GFR (MDRD) Af Amer (>60 ml/min/1.73 sqM) Est GFR (MDRD) Non-Af (>60 ml/min/1.73 sqM) Glucose (74-99) mg/dL Calcium (8.4-10.2) mg/dL Magnesium (1.6-2.3) mg/dL Total Bilirubin (0.2-1.3) mg/dL AST (17-59) U/L ALT (21-72) U/L Alkaline Phosphatase (38-126) U/L Total Creatine Kinase (55-170) U/L CK-MB (CK-2) (0.0-2.4) ng/mL CK-MB (CK-2) Rel Index Troponin I (0.000-0.034) ng/mL Total Protein (6.3-8.2) g/dL Albumin (3.5-5.0) g/dL Lipase (23-300) U/L - Radiology Data Radiology results: report reviewed (CTA chest negative for acute disease), image reviewed Disposition Clinical Impression: Chest pain, Tachycardia Disposition: HOME SELF-CARE Condition: Good Instructions: Chest Pain (ED) Referrals: Damian Marie MD [Primary Care Provider] - 1-2 days
[2017-08-02 11:53] LABS: D-Dimer 0.23 mg/L FEU (<0.60)
[2017-08-02 11:57] LABS: INR 0.9 (<1.2); Prothrombin Time 9.4 sec (9.0-12.0)
[2017-08-02 11:58] LABS: Partial Thromboplastin Time 22.3 sec (22.0-30.0)
[2017-08-02 12:03] LABS: Creatine Kinase 76 U/L (55-170)
[2017-08-02 12:16] LABS: Creatine Kinase MB 0.3 ng/mL (0.0-2.4); Troponin I <0.012 ng/mL (0.000-0.034)
--- NOTE | 2017-08-02 12:21 | XR ---
EXAMINATION TYPE: XR chest 2V DATE OF EXAM: 08/02/2017 COMPARISON: 02/15/2017 HISTORY: Chest pain for 2 days TECHNIQUE: Frontal and lateral views of the chest are obtained. FINDINGS: There is a very vague opacity within the lower lung and may represent confluence of pulmon zahra vessels and overlapping structures with 2 overlapping ribs or early airspace disease. Remainder t he lungs are clear. Cardiac silhouette is within normal limits. Minimal multilevel degenerative angulo es of the thoracic spine are noted. IMPRESSION: Very vague right lower lung patchy opacity that may represent early developing airspace disease or overlapping structures.
[2017-08-02 12:26] VITALS: RESP 18
[2017-08-02] MEDS ORDERED: RX INFO: IV CONTRAST WAS GIVEN 1 EACH MISC MISCELLANE PRN (12:27)
--- NOTE | 2017-08-02 13:28 | CT ---
EXAMINATION TYPE: CT angio chest DATE OF EXAM: 08/02/2017 COMPARISON: Radiograph same date HISTORY: 32-year-old male SOB, palpitations TECHNIQUE: Contiguous axial scanning of the chest performed with IV Contrast, patient injected with 8 3 mL of Omnipaque 350. Coronal/sagittal MIP reconstructions performed. CT DLP: 453.7 mGycm Automated exposure control for dose reduction was used. FINDINGS: Heart is normal size without pericardial effusion. Aorta normal caliber with conventional arch vessel branching anatomy. Satisfactory opacification of the pulmonary atrial system without evidence for pulmonary embolus. No thoracic lymphadenopathy. There is some mild soft tissue density along the anterior mediastinum champion ggesting residual thymus. Mild bilateral gynecomastia is noted. No consolidation or pleural effusion. Question radiographic findings compatible with artifact from ov erlying soft tissue density. Some strandy atelectasis basilar right middle lobe. There is minimal dif fuse bronchial wall thickening noted. Visualized upper abdomen shows no gross abnormality. Bones: No osseous destructive process. IMPRESSION: 1. NO EVIDENCE FOR PULMONARY EMBOLUS. 2. VERY MINIMAL DIFFUSE BRONCHIAL WALL THICKENING COULD REPRESENT BRONCHITIS OR ASTHMA. 3. OTHERWISE, NO ACUTE PULMONARY PROCESS.
[2017-08-02 13:36] VITALS: BP 138/78; PULSE 76
== END 2017-08-02 13:55 | disposition home or self-care (01) ==
LOC: EC 10:54
DX: R07.89 Other chest pain (principal); R00.0 Tachycardia, unspecified; F41.9 Anxiety disorder, unspecified; K58.9 Irritable bowel syndrome, unspecified; F32.9 Major depressive disorder, single episode, unspecified; F17.200 Nicotine dependence, unspecified, uncomplicated; Z79.899 Other long term (current) drug therapy; Z88.6 Allergy status to analgesic agent
CPT/HCPCS: 36415; 93005; 85379; 80053; 82550; 82553; 83690; 83735; 84484; 85025; 85610; 85730; 71046; 71275; 99285; 96360; 96361; Q9967

== ENCOUNTER 2021-03-14 20:26 | Emergency (ER) | payer MEDICARE, OTHER ==
[2021-03-14 21:14] VITALS: RESP 18
--- NOTE | 2021-03-14 21:19 | ED ---
Psych HPI - General Source: patient, RN notes reviewed Mode of arrival: ambulatory Limitations: no limitations <Zbigniew Herzog - Last Filed: 03/14/21 21:18> <Spencer Ryan - Last Filed: 03/15/21 22:00> - General Chief Complaint: Psychiatric Symptoms Stated Complaint: Mental Health Time Seen by Provider: 03/14/21 21:11 - History of Present Illness Initial Comments: This a 36-year-old male presents emergency Department chief complaint of severe depression, anxiety issues. Patient states that he does not have the solutions to his problems anymore. Patient does admit that he is been using methamphetamines for 10 years. Patient states he does not use any other illicit drug use denies any alcohol abuse. No physical complaints. Patient states is very tearful, crying constantly states that he does not know what to do to solve his problems. Denies being suicidal (Zbigniew Herzog) - Related Data Home Medications Medication Instructions Recorded Confirmed ALPRAZolam [Xanax] 0.5 mg PO TID PRN 05/19/17 08/02/17 Enalapril [Vasotec] 5 mg PO DAILY 05/19/17 08/02/17 atenoloL [Tenormin] 50 mg PO DAILY 05/19/17 08/02/17 oxyCODONE HCL/ACETAMINOPHEN 1 tab PO QID PRN 05/19/17 08/02/17 [Percocet 10-325 mg] Dicyclomine [Bentyl] 10 mg PO QID 08/02/17 08/02/17 Sertraline [Zoloft] 100 mg PO DAILY 08/02/17 08/02/17 Allergies Allergy/AdvReac Type Severity Reaction Status Date / Time ketorolac tromethamine Allergy Rash/Hives Verified 08/02/17 11:38 [From Toradol] Review of Systems ROS Other: All systems not noted in ROS Statement are negative. <Zbigniew Herzog - Last Filed: 03/14/21 21:18> ROS Other: All systems not noted in ROS Statement are negative. <Specner Ryan - Last Filed: 03/15/21 22:00> ROS Statement: Those systems with pertinent positive or pertinent negative responses have been documented in the HPI. Past Medical History Past Medical History: Liver Disease, Musculoskeletal Disorder Additional Past Medical History / Comment(s): diverticulitis, IBS, Hepatitis C, chronic back pain. States Hepatitis C was acute and now it's gone - per Dr. Chapin History of Any Multi-Drug Resistant Organisms: None Reported Past Surgical History: Orthopedic Surgery Additional Past Surgical History / Comment(s): left shoulder, left ankle; 8 teeth extracted, [facility] Past Anesthesia/Blood Transfusion Reactions: No Reported Reaction Past Psychological History: Anxiety, Depression Smoking Status: Current every day smoker Past Alcohol Use History: None Reported Past Drug Use History: Methamphetamine - Past Family History Father Family Medical History: Unable to Obtain Mother Family Medical History: No Reported History <Zbigniew Herzog - Last Filed: 03/14/21 21:18> General Exam General appearance: alert, in no apparent distress, anxious Head exam: Present: atraumatic, normocephalic, normal inspection Eye exam: Present: normal appearance, PERRL, EOMI. Absent: scleral icterus, conjunctival injection, periorbital swelling ENT exam: Present: normal exam, normal oropharynx, mucous membranes moist Neck exam: Present: normal inspection, full ROM. Absent: tenderness, meningismus, lymphadenopathy Respiratory exam: Present: normal lung sounds bilaterally. Absent: respiratory distress, wheezes, rales, rhonchi, stridor Cardiovascular Exam: Present: regular rate, normal rhythm, normal heart sounds. Absent: systolic murmur, diastolic murmur, rubs, gallop, clicks Neurological exam: Present: alert, oriented X3, CN II-XII intact, reflexes normal. Absent: motor sensory deficit Skin exam: Present: warm, dry, intact, normal color. Absent: rash <Zbigniew Herzog - Last Filed: 03/14/21 21:18> Course <Spencer Ryan - Last Filed: 03/15/21 22:00> Vital Signs 03/14/21 03/15/21 03/15/21 21:10 00:30 01:30 Temperature 98.3 F Pulse Rate 100 Respiratory 18 18 18 Rate Blood Pressure 140/95 O2 Sat by Pulse 98 Oximetry 03/15/21 01:53 Temperature 98.6 F Pulse Rate 88 Respiratory 18 Rate Blood Pressure 138/76 O2 Sat by Pulse 98 Oximetry - Reevaluation(s) Reevaluation #1: medical record is reviewed patient is medically clear for psych (Spencer Ryan) Medical Decision Making <Spencer Ryan - Last Filed: 03/15/21 22:00> - Medical Decision Making 36 male DF for psychiatric evaluation alcohol intoxication and depression. Evaluation by psychiatry patient deemed stable for discharge home patient can be discharged (Spencer Ryan) - Lab Data Lab Results 03/14/21 03/14/21 Range/Units 21:43 23:17 Urine Opiates Screen Not Detected (NotDetected) Ur Oxycodone Screen Not Detected (NotDetected) Urine Methadone Screen Not Detected (NotDetected) Ur Propoxyphene Screen Not Detected (NotDetected) Ur Barbiturates Screen Not Detected (NotDetected) U Tricyclic Antidepress Not Detected (NotDetected) Ur Phencyclidine Scrn Not Detected (NotDetected) Ur Amphetamines Screen Detected H (NotDetected) U Methamphetamines Scrn Detected H (NotDetected) U Benzodiazepines Scrn Detected H (NotDetected) Urine Cocaine Screen Not Detected (NotDetected) U Marijuana (THC) Screen Detected H (NotDetected) Coronavirus (PCR) Not Detected (Not Detectd) Disposition <Zbigniew Herzog - Last Filed: 03/14/21 21:18> Is patient prescribed a controlled substance at d/c from ED?: No <Spencer Ryan - Last Filed: 03/15/21 22:00> Clinical Impression: Depression Disposition: HOME SELF-CARE Condition: Fair Instructions (If sedation given, give patient instructions): Depression (ED) Referrals: None,Stated [Primary Care Provider] - 1-2 days
[2021-03-14 22:25] LABS: Cocaine Screen,Urine Not Detected (NotDetected); Phencyclidine Screen,Urine Not Detected (NotDetected); Urn Cannabinoid Scrn Detected (NotDetected)
[2021-03-14 22:26] LABS: Amphetamine Screen,Urine Detected (NotDetected); Barbiturate Screen,Urine Not Detected (NotDetected); Benzodiazepines Screen,Urine Detected (NotDetected); Methadone Screen, Urine Not Detected (NotDetected); Opiate Screen,Urine Not Detected (NotDetected); Oxycodone Screen, Urine Not Detected (NotDetected); Tricyclic Antidepressant,Urine Not Detected (NotDetected)
[2021-03-15 01:54] VITALS: BP 138/76; PULSE 88; TEMP 98.6
== END 2021-03-15 01:53 | disposition home or self-care (01) ==
LOC: EC 20:26
DX: F32.9 Major depressive disorder, single episode, unspecified (principal); F41.9 Anxiety disorder, unspecified; F15.90 Other stimulant use, unspecified, uncomplicated; K58.9 Irritable bowel syndrome, unspecified; F17.200 Nicotine dependence, unspecified, uncomplicated; Z20.822 Contact with and (suspected) exposure to COVID-19
CPT/HCPCS: 80306; 82075; 87635; 99283

== ENCOUNTER 2021-05-13 13:56 | Day surgery (SDC) | payer MEDICARE ==
--- NOTE | 2021-05-12 19:16 | P.HPOR ---
History of Present Illness H&P Date: 05/12/21 Chief Complaint: Left thumb extensor tendon laceration Subjective: This is a 36 year old male that presents today for initial evaluation regarding a left thumb laceration that occurred on 04/27/21 when he was sharpening a knife. He cut the dorsal aspect of the thumb, was seen at an outside ED where his wound was washed out and sutured shut. He has been unable to extend the thumb IP joint since. He denies any prior injury to this hand in the past. Physical Examination: LUE: AIN/PIN/Radial/Ulnar/Median motor intact. Radial/Ulnar/Median SILT. 2+/4 Radial/Ulnar pulses palpated. 1cm transverse laceration just proximal to thumb IP joint. Unable to actively extend thumb IP joint. Passive thumb IP joint able to be achieved. FPL intact. Imaging: X-Rays of the left hand demonstrate no acute osseus abnormality with thumb IP joint held in flexion. Impression: 1.) Left thumb EPL laceration, 2 weeks out from injury. Plan: Diagnosis and treatment options were discussed with the patient. I recommend surgical intervention for his left thumb EPL tendon laceration with extensor tendon repair and possible thumb IP joint pinning. Risks and benefit of surgery including bleeding, infection, damage to surrounding tissue, need for further surgery were discussed and the patient wished to go forward with surgery. The patient was agreeable with this plan of action and will obtain pre-op labs prior to surgery. -Josh Oneil DO Orthopedic Hand/Upper Extremity Surgeon Past Medical History Past Medical History: Liver Disease, Musculoskeletal Disorder Additional Past Medical History / Comment(s): diverticulitis, IBS, Hepatitis C, chronic back pain. States Hepatitis C was acute and now it's gone - per Dr. Chapin History of Any Multi-Drug Resistant Organisms: None Reported Past Surgical History: Orthopedic Surgery Additional Past Surgical History / Comment(s): left shoulder, left ankle; 8 teeth extracted, [facility] Past Anesthesia/Blood Transfusion Reactions: No Reported Reaction Past Psychological History: Anxiety, Depression Smoking Status: Current every day smoker Past Alcohol Use History: None Reported Past Drug Use History: Methamphetamine - Past Family History Father Family Medical History: Unable to Obtain Mother Family Medical History: No Reported History Medications and Allergies Home Medications Medication Instructions Recorded Confirmed Type ALPRAZolam [Xanax] 0.5 mg PO TID PRN 05/19/17 08/02/17 History Enalapril [Vasotec] 5 mg PO DAILY 05/19/17 08/02/17 History atenoloL [Tenormin] 50 mg PO DAILY 05/19/17 08/02/17 History oxyCODONE HCL/ACETAMINOPHEN 1 tab PO QID PRN 05/19/17 08/02/17 History [Percocet 10-325 mg] Dicyclomine [Bentyl] 10 mg PO QID 08/02/17 08/02/17 History Sertraline [Zoloft] 100 mg PO DAILY 08/02/17 08/02/17 History Allergies Allergy/AdvReac Type Severity Reaction Status Date / Time ketorolac tromethamine Allergy Rash/Hives Verified 08/02/17 11:38 [From Toradol] Physical Examination Osteopathic Statement: *. No significant issues noted on an osteopathic structural exam other than those noted in the History and Physical/Consult.
[~2021-05-13 13:56] MED LIST changes: +DEXAMETHASONE SOD PHOSPHATE 4 MG/ML 1 ML VIAL IV ONE; +HYDROmorphone 0.5 MG/0.5 ML SYRINGE IVP PRN; +LIDOCAINE 1% (10MG/ML) FOR IV START INTRADERMA PRN; +MIDAZOLAM 2 MG/2 ML VIAL IV PRN; +ONDANSETRON 4 MG/2 ML VIAL IVP ONE
[2021-05-13] MEDS ORDERED: MIDAZOLAM 2 MG/2 ML VIAL IVP ONE (14:57)
[2021-05-13 14:59] LABS: African American GFR (CKD) >90 (>60 ml/min/1.73 sqM); Anion Gap 11 mmol/L; Blood Urea Nitrogen 22 mg/dL (9-20); Calcium 9.3 mg/dL (8.4-10.2); Carbon Dioxide 22 mmol/L (22-30); Chloride 107 mmol/L (98-107); Glucose 100 mg/dL (74-99); Non-African American GFR(CKD) 88 (>60 ml/min/1.73 sqM); Potassium 4.8 mmol/L (3.5-5.1); Sodium 140 mmol/L (137-145)
[2021-05-13 15:20] LABS: Basophils # (A) 0.1 k/uL (0-0.2); Basophils % (A) 1 %; Eosinophils # (A) 0.2 k/uL (0-0.7); Eosinophils % (A) 2 %; HCT 44.3 % (39.0-53.0); Lymphocytes # (A) 1.6 k/uL (1.0-4.8); Lymphocytes % (A) 18 %; MCH 29.4 pg (25.0-35.0); MCHC 33.8 g/dL (31.0-37.0); MCV 87.1 fL (80.0-100.0); Mean Platelet Volume 7.3; Monocytes # (A) 0.3 k/uL (0-1.0); Monocytes % (A) 4 %; Neutrophils # (A) 6.4 k/uL (1.3-7.7); Neutrophils % (A) 74 %; Platelet Count 262 k/uL (150-450); RBC 5.09 m/uL (4.30-5.90); RDW 13.4 % (11.5-15.5); WBC 8.7 k/uL (3.8-10.6)
[2021-05-13] MEDS ORDERED: SUCCINYLCHOLINE CHLORIDE 100 MG/5 ML SYR IV ONE (15:49)
[2021-05-13] MEDS ORDERED: PROPOFOL 10 MG/ML 20 ML VIAL IV ONE (15:49)
[2021-05-13] MEDS ORDERED: LIDOCAINE 1% INJ 10MG/ML (20 ML MDV) ONE (15:49)
[2021-05-13] MEDS ORDERED: .fentaNYL (PF) 50 MCG/ML 2 ML AMP ONE (15:49)
[2021-05-13] MEDS ORDERED: BUPIVACAINE (PF) 0.5% 30 ML VIAL INTRAARTIC ONE ×2 (16:33→16:43)
[2021-05-13 17:03] VITALS: TEMP 97.9
[2021-05-13 17:12] VITALS: RESP 16
[2021-05-13] MEDS ORDERED: HYDROcodone/APAP 5-325MG 1 EACH TAB ONE (17:40)
[2021-05-13] MEDS ORDERED: HYDROcodone/APAP 5-325MG 1 EACH TAB PO ONE (17:40)
[2021-05-13 17:48] VITALS: BP 144/78; PULSE 100
--- NOTE | 2021-05-14 00:07 | P.OP ---
Date of Procedure: 05/13/21 Preoperative Diagnosis: Left thumb extensor pollicis longus tendon laceration Postoperative Diagnosis: Left thumb extensor pollicis longus tendon laceration Procedure(s) Performed: Left thumb extensor pollicis longus tendon laceration repair, zone T-2 Anesthesia: MADELINEA Surgeon: Josh Oneil Medical Supervisor #1: Thony Flynn Estimated Blood Loss (ml): 0 Pathology: none sent Condition: stable Disposition: PACU Description of Procedure: This is a 36 year old male who sustained a laceration to his left thumb with a knife. He presents today for EPL tendon repair. Risks and benefits of surgery were discussed with the patient including bleeding, damage to surrounding tissue, infection, need for further surgery as well as risks of anesthesia including pulmonary embolism and even and the patient wished to proceed with surgical intervention. The patient was seen in the pre-operative area by myself. Consent and H&P were completed and updated. The correct extremity was marked in the pre-operative area by myself and all other questions were answered. Operative Narrative: The patient was brought to the operating room by the department of anesthesia. They remained on the portable stretcher and a rolling hand table was brought to the side of the operative extremity. Pre-operative time out was performed indicating the correct patient, procedure and laterality. All in the room agreed. Pre-operative antibiotics were given prior to skin incision. The patient was then drifted off to sleep by the department of anesthesia. A nonsterile tourniquet was then applied to the operative extremity and the left upper extremity was then prepped and draped in normal sterile fashion. The operative extremity was the exsanguinated with an esmarch bandage and the tourniquet was inflated to 250mmHg. The existing transverse laceration just proximal to the thumb IP joint was extended both distally and proximally with a 15 blade scalpel. Blunt dissection was taken down to subcutaneous tissue taking care to protect dorsal sensory br anches of the radial nerve. The proximal and distal tendon edges were identified and were at the junction of T-1 to T-2 zone with thin edges, the proximal tendon was retracted roughly 3cm. Due to the thickness of the tendon was not amendable to core suture repair. The thumb was held in extension and the proximal and distal edges were approximated with several interrupted figure of 8 stitches with 4-0 ethibond. A running stitch was then used to augment the repair with additional 4-0 ethibond. The wound was the irrigated. Skin closure was performed with 4-0 nylon suture. 10cc of 0.5% bupivicaine was utilized to perform a thumb block. Sterile dressing consisting of adaptic, 4x4s, webril, and a thumb spica splint was applied. The patient was then woken by the department of anesthesia and transferred to PACU in stable condition. Josh Oneil D.O. Orthopedic Hand/Upper Extremity Surgeon
== END 2021-05-13 18:00 | disposition home or self-care (01) ==
LOC: OR 13:56
PROVIDERS: ATTEND Orthopaedic Surgery Hand Surgery
DX: S66.222A Laceration of extensor muscle, fascia and tendon of left thumb at wrist and hand level, initial encounter (principal); W26.0XXA Contact with knife, initial encounter; K58.9 Irritable bowel syndrome, unspecified; I10 Essential (primary) hypertension; G89.29 Other chronic pain; M54.9 Dorsalgia, unspecified; F17.200 Nicotine dependence, unspecified, uncomplicated; Z86.19 Personal history of other infectious and parasitic diseases; Z98.890 Other specified postprocedural states; Z87.19 Personal history of other diseases of the digestive system; F41.9 Anxiety disorder, unspecified; F32.A Depression, unspecified; Z79.899 Other long term (current) drug therapy; Z88.8 Allergy status to other drugs, medicaments and biological substances
CPT/HCPCS: 80048; 85025; 26418; J2250; J1100; J0690; J2405; J2001; J3010; J0330; J2704

== ENCOUNTER 2021-06-26 20:10 | Emergency (ER) | payer MEDICARE ==
[2021-06-26 20:20] VITALS: BP 146/107; PULSE 118; RESP 20; TEMP 97
--- NOTE | 2021-06-26 20:29 | ED ---
General Adult HPI - General Chief complaint: Psychiatric Symptoms Stated complaint: Mental Health Time Seen by Provider: 06/26/21 20:21 Source: patient, RN notes reviewed Mode of arrival: ambulatory Limitations: no limitations - History of Present Illness Initial comments: Patient is a pleasant 36-year-old male presenting to the emergency Department with depression and anxiety. Patient states symptoms have been progressing over the past few months. Patient does have history of similar symptoms previously however not as bad. Patient is feeling paranoid. Patient has racing thoughts and difficulty concentrating. Patient does use meth. No alcohol use. No new physical complaints. Patient denies hallucinations. Patient states he does not feel suicidal however sometimes he strikes himself in the head to help himself concentrate. No homicidal thoughts. - Related Data Home Medications Medication Instructions Recorded Confirmed ALPRAZolam [Xanax] 0.5 mg PO TID PRN 05/19/17 08/02/17 Enalapril [Vasotec] 5 mg PO DAILY 05/19/17 08/02/17 atenoloL [Tenormin] 50 mg PO DAILY 05/19/17 08/02/17 Dicyclomine [Bentyl] 10 mg PO QID 08/02/17 08/02/17 Sertraline [Zoloft] 100 mg PO DAILY 08/02/17 05/13/21 Previous Rx's Medication Instructions Recorded HYDROcodone/APAP 5-325MG [[place] 2 tab PO Q6HR PRN 3 Days #24 tab 05/13/21 5-325] Allergies Allergy/AdvReac Type Severity Reaction Status Date / Time ketorolac tromethamine Allergy Rash/Hives Verified 06/26/21 20:16 [From Toradol] Review of Systems ROS Statement: Those systems with pertinent positive or pertinent negative responses have been documented in the HPI. ROS Other: All systems not noted in ROS Statement are negative. Constitutional: Denies: fever Eyes: Denies: eye pain ENT: Denies: ear pain Respiratory: Denies: cough Cardiovascular: Denies: chest pain Endocrine: Denies: fatigue Gastrointestinal: Denies: abdominal pain Genitourinary: Denies: dysuria Musculoskeletal: Denies: back pain Skin: Denies: rash Psychiatric: Reports: anxiety, depression Past Medical History Past Medical History: Liver Disease, Musculoskeletal Disorder Additional Past Medical History / Comment(s): diverticulitis, IBS, Hepatitis C, chronic back pain. States Hepatitis C was acute and now it's gone - per Dr. Chapin History of Any Multi-Drug Resistant Organisms: None Reported Past Surgical History: Orthopedic Surgery Additional Past Surgical History / Comment(s): left shoulder, left ankle; 8 teeth extracted, [facility] Past Anesthesia/Blood Transfusion Reactions: No Reported Reaction Past Psychological History: Anxiety, Depression Smoking Status: Current every day smoker Past Alcohol Use History: None Reported Past Drug Use History: Marijuana, Methamphetamine - Past Family History Father Family Medical History: Unable to Obtain Mother Family Medical History: No Reported History General Exam Limitations: no limitations General appearance: alert, anxious Head exam: Present: normocephalic Eye exam: Present: normal appearance Neck exam: Present: normal inspection Respiratory exam: Present: normal lung sounds bilaterally Cardiovascular Exam: Present: tachycardia GI/Abdominal exam: Present: soft. Absent: tenderness Extremities exam: Present: normal inspection Neurological exam: Present: alert Psychiatric exam: Present: depressed, anxious, other (Tearful) Skin exam: Present: normal color Course Vital Signs 06/26/21 20:16 Temperature 97.0 F L Pulse Rate 118 H Respiratory 20 Rate Blood Pressure 146/107 O2 Sat by Pulse 99 Oximetry Medical Decision Making - Medical Decision Making Patient seen by mental health services with plans for discharge and follow-up Disposition Clinical Impression: Depression Disposition: HOME SELF-CARE Condition: Stable Instructions (If sedation given, give patient instructions): Depression (ED), Methamphetamine Abuse (ED) Additional Instructions: Please do follow-up with mental health services as directed. Please also follow-up with primary care physician in the next day or 2 for recheck. Discontinue any methamphetamine use. Return for thoughts of self-harm, worsening or changing symptoms or other concerns. Is patient prescribed a controlled substance at d/c from ED?: No Referrals: Reyes Gentile MD [Primary Care Provider] - 1-2 days Time of Disposition: 21:44
== END 2021-06-26 22:10 | disposition home or self-care (01) ==
LOC: EC 20:10
DX: F32.A Depression, unspecified (principal); F41.9 Anxiety disorder, unspecified; F17.200 Nicotine dependence, unspecified, uncomplicated; F12.90 Cannabis use, unspecified, uncomplicated
CPT/HCPCS: 82075; 99283

== ENCOUNTER 2022-09-14 15:26 | Inpatient (IN) | payer MEDICARE ==
[2022-09-14] MEDS ORDERED: ACETAMINOPHEN TAB 500 MG TAB PO STA (15:54)
[2022-09-14] MEDS ORDERED: IBUPROFEN 600 MG TAB PO STA (15:54)
--- NOTE | 2022-09-14 16:01 | ED ---
General Adult HPI - General Chief complaint: Fever Stated complaint: Fever Time Seen by Provider: 09/14/22 15:48 Source: patient, RN notes reviewed Mode of arrival: EMS Limitations: no limitations - History of Present Illness Initial comments: Patient is a pleasant 37-year-old male presenting to the emergency department with concern for fever. Onset of symptoms was around 11:00 today. Note this is different from nursing triage. Patient has discomfort of his lower back, more so on the left side. Patient has mild urinary frequency however no dysuria. No abdominal pain. Patient states when he takes a deep breath he feels like he needs to cough. Patient denies upper respiratory symptoms otherwise. No weakness. 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 - Related Data Home Medications Medication Instructions Recorded Confirmed Metoprolol Succinate (ER) [Toprol 25 mg PO DAILY 07/25/22 09/14/22 XL] Allergies Allergy/AdvReac Type Severity Reaction Status Date / Time ketorolac tromethamine Allergy Rash/Hives Verified 09/14/22 16:29 [From Toradol] Review of Systems ROS Statement: Those systems with pertinent positive or pertinent negative responses have been documented in the HPI. ROS Other: All systems not noted in ROS Statement are negative. Constitutional: Reports: fever, chills Eyes: Denies: eye pain ENT: Denies: ear pain Respiratory: Reports: as per HPI. Denies: cough Cardiovascular: Reports: chest pain (Patient's states there may be some mild heaviness) Endocrine: Reports: fatigue Gastrointestinal: Denies: abdominal pain, nausea, vomiting Genitourinary: Reports: as per HPI. Denies: dysuria, hematuria Musculoskeletal: Reports: as per HPI, back pain Skin: Denies: rash Neurological: Denies: weakness Past Medical History Past Medical History: Liver Disease, Musculoskeletal Disorder Additional Past Medical History / Comment(s): diverticulitis, IBS, Hepatitis C, chronic back pain. States Hepatitis C was acute and now it's gone - per Dr. Chapin History of Any Multi-Drug Resistant Organisms: None Reported Past Surgical History: Orthopedic Surgery Additional Past Surgical History / Comment(s): left shoulder, left ankle; 8 teeth extracted, [facility] Past Anesthesia/Blood Transfusion Reactions: No Reported Reaction Past Psychological History: Anxiety, Depression Smoking Status: Current every day smoker Past Alcohol Use History: None Reported Past Drug Use History: Marijuana, Methamphetamine - Past Family History Father Family Medical History: Unable to Obtain Mother Family Medical History: No Reported History General Exam Limitations: no limitations General appearance: alert Head exam: Present: atraumatic Eye exam: Present: normal appearance, PERRL ENT exam: Present: normal oropharynx Neck exam: Present: normal inspection. Absent: meningismus Respiratory exam: Present: normal lung sounds bilaterally Cardiovascular Exam: Present: tachycardia, normal heart sounds GI/Abdominal exam: Present: soft. Absent: tenderness Extremities exam: Present: normal inspection. Absent: calf tenderness Back exam: Present: tenderness (Mild tenderness left paralumbar, lower) Neurological exam: Present: alert. Absent: motor sensory deficit Expanded Sensory exam: Lower Extremity Light Touch: Normal Motor strength exam: RLE: 5, LLE: 5 Psychiatric exam: Present: normal affect, normal mood Skin exam: Present: normal color. Absent: rash Course Vital Signs 09/14/22 09/14/22 15:27 17:22 Temperature 102 F H 98.3 F Pulse Rate 130 H 105 H Respiratory 18 18 Rate Blood Pressure 145/93 108/69 O2 Sat by Pulse 98 98 Oximetry - Reevaluation(s) Reevaluation #1: 09/14/22 18:10 There is concern for possible sepsis diagnosed at 1810. Blood culture and lactic acid have been drawn. Patient will receive IV antibiotics. Patient has received fluid bolus of 2500 mL. EKG Findings - EKG Results: EKG: interpreted by ERMD (L axis. nonspecific ST-T), sinus rhythm, normal QRS EKG shows: tachycardia Procedures - Sepsis Sepsis Focused Exam #1 Time Sepsis Criteria Met: 18:10 Sepsis Focused Exam Date: 09/14/22 Sepsis Focused Exam Time: 18:12 Sepsis Focused Exam Complete: Yes Vital Signs & RN Notes Reviewed: Yes Capillary Refill: < 2 Seconds: Fingers, Toes Peripheral Pulses: Normal: Radial (R), Radial (L) Skin Color: Normal for Patient Respiratory Exam: normal lung sounds Cardiovascular Exam: tachycardia Medical Decision Making - Medical Decision Making Was pt. sent in by a medical professional or institution (, PA, CHIEF OPERATING ENGINEER, urgent care, hospital, or custodial...) When possible be specific @ -No Did you speak to anyone other than the patient for history (EMS, parent, family, police, friend...)? What history was obtained from this source @ -No Did you review nursing and triage notes (agree or disagree)? Why? @ -I reviewed and agree with nursing and triage notes Were old charts reviewed (outside hosp., previous admission, EMS record, old EKG, old radiological studies, urgent care reports/EKG's, custodial records)? Report findings @ -No old charts were reviewed Differential Diagnosis (chest pain, altered mental status, abdominal pain women, abdominal pain men, vaginal bleeding, weakness, fever, dyspnea, syncope, headache, dizziness, GI bleed, back pain, seizure, CVA, palpatations, mental health)? @ -Differential Fever: Pneumonia, viral URI, endocarditis, myocarditis, pericarditis, otitis, sinusitis, peritonsillar Abscess, retropharyngeal Abscess, epiglottitis, peritonitis, appendicitis, Nafisa cystitis, diverticulitis, hepatitis, colitis, UTI, PID, TOA, pyelonephritis, prostatitis, epididymitis, meningitis, enceph alitis, pulmonary embolism, CVA, thyroid storm, pancreatitis, adrenal crisis, cavernous sinus thrombosis, this is not meant to be an all-inclusive list. EKG interpreted by me (3pts min.). @ -As above X-rays interpreted by me (1pt min.). @ -Chest x-ray does not show acute abnormality CT interpreted by me (1pt min.). @ -None done U/S interpreted by me (1pt. min.). @ -None done What testing was considered but not performed or refused? (CT, X-rays, U/S, labs)? Why? @ -None What meds were considered but not given or refused? Why? @ -None Did you discuss the management of the patient with other professionals (professionals i.e. DrLeonel, PA, CHIEF OPERATING ENGINEER, lab, RT, psych nurse, sexual assault social worker, refractory technician, teacher, payroll officer, case aide)? Give summary @ -Case was discussed with practitioner Mary, who will admit for Dr. Dr. portillo, who admits for Dr. Rivera. Was smoking cessation discussed for >3mins.? @ -No Was critical care preformed (if so, how long)? @ -No Were there social determinants of health that impacted care today? How? (Homelessness, low income, unemployed, alcoholism, drug addiction, transportation, low edu. Level, literacy, decrease access to med. care, [place] [facility], rehab)? @ -No Was there de-escalation of care discussed even if they declined (Discuss DNR or withdrawal of care, Hospice)? DNR status @ -No What co-morbidities impacted this encounter? (DM, HTN, Smoking, COPD, CAD, Cancer, CVA, ARF, Chemo, Hep., AIDS, mental health diagnosis, sleep apnea, morbid obesity)? @ -None Was patient admitted / discharged? Hospital course, mention meds given and route, prescriptions, significant lab abnormalities, going to OR and other pertinent info. @ -Patient has fever of unknown origin with history of IVDA. Patient will be admitted for further evaluation. There is concern for possible sepsis and patient will be started with IV antibiotics. Undiagnosed new problem with uncertain prognosis? @ -Undiagnosed reason for fever with uncertain prognosis Drug Therapy requiring intensive monitoring for toxicity (Heparin, Nitro, Insulin, Cardizem)? @ -No Were any procedures done? @ -No Diagnosis/symptom? @ -Fever of unknown origin Acute, or Chronic, or Acute on Chronic? @ -Acute Uncomplicated (without systemic symptoms) or Complicated (systemic symptoms)? @ -default Side effects of treatment? @ -No Exacerbation, Progression, or Severe Exacerbation? @ -No Poses a threat to life or bodily function? How? (Chest pain, [place], [place], pneumonia, PE, COPD, DKA, ARF, appy, cholecystitis, CVA, Diverticulitis, Homicidal, Suicidal, threat to staff... and all critical care pts) @ -No - Lab Data Result diagrams: 09/14/22 16:01 09/14/22 16:01 Lab Results 09/14/22 09/14/22 09/14/22 Range/Units 16:01 16:01 16:01 WBC 4.9 (3.8-10.6) k/uL RBC 5.03 (4.30-5.90) m/uL Hgb 14.8 (13.0-17.5) gm/dL Hct 42.7 (39.0-53.0) % MCV 84.9 (80.0-100.0) fL MCH 29.5 (25.0-35.0) pg MCHC 34.7 (31.0-37.0) g/dL RDW 13.7 (11.5-15.5) % Plt Count 113 L (150-450) k/uL MPV 8.5 Neutrophils % 91 % Lymphocytes % 5 % Monocytes % 4 % Eosinophils % 1 % Basophils % 0 % Neutrophils # 4.4 (1.3-7.7) k/uL Lymphocytes # 0.2 L (1.0-4.8) k/uL Monocytes # 0.2 (0-1.0) k/uL Eosinophils # 0.0 (0-0.7) k/uL Basophils # 0.0 (0-0.2) k/uL PT 10.6 (9.0-12.0) sec INR 1.0 (<1.2) APTT 20.8 L (22.0-30.0) sec Sodium 139 (137-145) mmol/L Potassium 3.3 L (3.5-5.1) mmol/L Chloride 112 H (98-107) mmol/L Carbon Dioxide 19 L (22-30) mmol/L Anion Gap 8 mmol/L BUN 14 (9-20) mg/dL Creatinine 0.89 (0.66-1.25) mg/dL Est GFR (CKD-EPI)AfAm >90 (>60 ml/min/1.73 sqM) Est GFR (CKD-EPI)NonAf >90 (>60 ml/min/1.73 sqM) Glucose 126 H (74-99) mg/dL Plasma Lactic Acid He (0.7-2.0) mmol/L Calcium 8.6 (8.4-10.2) mg/dL Total Bilirubin 1.3 (0.2-1.3) mg/dL AST 52 (17-59) U/L ALT 37 (4-49) U/L Alkaline Phosphatase 97 (38-126) U/L Troponin I (0.000-0.034) ng/mL Total Protein 6.2 L (6.3-8.2) g/dL Albumin 3.3 L (3.5-5.0) g/dL Urine Color Urine Appearance (Clear) Urine pH (5.0-8.0) Ur Specific [place] (1.001-1.035) Urine Protein (Negative) Urine Glucose (UA) (Negative) Urine Ketones (Negative) Urine Blood (Negative) Urine Nitrite (Negative) Urine Bilirubin (Negative) Urine Urobilinogen (<2.0) mg/dL Ur Leukocyte Esterase (Negative) Influenza Type A (PCR) (Not Detectd) Influenza Type B (PCR) (Not Detectd) RSV (PCR) (Not Detectd) SARS-CoV-2 (PCR) (Not Detectd) 09/14/22 09/14/22 09/14/22 Range/Units 16:01 16:01 16:15 WBC (3.8-10.6) k/uL RBC (4.30-5.90) m/uL Hgb (13.0-17.5) gm/dL Hct (39.0-53.0) % MCV (80.0-100.0) fL MCH (25.0-35.0) pg MCHC (31.0-37.0) g/dL RDW (11.5-15.5) % Plt Count (150-450) k/uL MPV Neutrophils % % Lymphocytes % % Monocytes % % Eosinophils % % Basophils % % Neutrophils # (1.3-7.7) k/uL Lymphocytes # (1.0-4.8) k/uL Monocytes # (0-1.0) k/uL Eosinophils # (0-0.7) k/uL Basophils # (0-0.2) k/uL PT (9.0-12.0) sec INR (<1.2) APTT (22.0-30.0) sec Sodium (137-145) mmol/L Potassium (3.5-5.1) mmol/L Chloride (98-107) mmol/L Carbon Dioxide (22-30) mmol/L Anion Gap mmol/L BUN (9-20) mg/dL Creatinine (0.66-1.25) mg/dL Est GFR (CKD-EPI)AfAm (>60 ml/min/1.73 sqM) Est GFR (CKD-EPI)NonAf (>60 ml/min/1.73 sqM) Glucose (74-99) mg/dL Plasma Lactic Acid He 4.2 H* (0.7-2.0) mmol/L Calcium (8.4-10.2) mg/dL Total Bilirubin (0.2-1.3) mg/dL AST (17-59) U/L ALT (4-49) U/L Alkaline Phosphatase (38-126) U/L Troponin I <0.012 (0.000-0.034) ng/mL Total Protein (6.3-8.2) g/dL Albumin (3.5-5.0) g/dL Urine Color Urine Appearance (Clear) Urine pH (5.0-8.0) Ur Specific [place] (1.001-1.035) Urine Protein (Negative) Urine Glucose (UA) (Negative) Urine Ketones (Negative) Urine Blood (Negative) Urine Nitrite (Negative) Urine Bilirubin (Negative) Urine Urobilinogen (<2.0) mg/dL Ur Leukocyte Esterase (Negative) Influenza Type A (PCR) Not Detected (Not Detectd) Influenza Type B (PCR) Not Detected (Not Detectd) RSV (PCR) Not Detected (Not Detectd) SARS-CoV-2 (PCR) Not Detected (Not Detectd) 09/14/22 Range/Units 16:15 WBC (3.8-10.6) k/uL RBC (4.30-5.90) m/uL Hgb (13.0-17.5) gm/dL Hct (39.0-53.0) % MCV (80.0-100.0) fL MCH (25.0-35.0) pg MCHC (31.0-37.0) g/dL RDW (11.5-15.5) % Plt Count (150-450) k/uL MPV Neutrophils % % Lymphocytes % % Monocytes % % Eosinophils % % Basophils % % Neutrophils # (1.3-7.7) k/uL Lymphocytes # (1.0-4.8) k/uL Monocytes # (0-1.0) k/uL Eosinophils # (0-0.7) k/uL Basophils # (0-0.2) k/uL PT (9.0-12.0) sec INR (<1.2) APTT (22.0-30.0) sec Sodium (137-145) mmol/L Potassium (3.5-5.1) mmol/L Chloride (98-107) mmol/L Carbon Dioxide (22-30) mmol/L Anion Gap mmol/L BUN (9-20) mg/dL Creatinine (0.66-1.25) mg/dL Est GFR (CKD-EPI)AfAm (>60 ml/min/1.73 sqM) Est GFR (CKD-EPI)NonAf (>60 ml/min/1.73 sqM) Glucose (74-99) mg/dL Plasma Lactic Acid He (0.7-2.0) mmol/L Calcium (8.4-10.2) mg/dL Total Bilirubin (0.2-1.3) mg/dL AST (17-59) U/L ALT (4-49) U/L Alkaline Phosphatase (38-126) U/L Troponin I (0.000-0.034) ng/mL Total Protein (6.3-8.2) g/dL Albumin (3.5-5.0) g/dL Urine Color Yellow Urine Appearance Clear (Clear) Urine pH 5.0 (5.0-8.0) Ur Specific [place] 1.012 (1.001-1.035) Urine Protein Negative (Negative) Urine Glucose (UA) Negative (Negative) Urine Ketones Negative (Negative) Urine Blood Negative (Negative) Urine Nitrite Negative (Negative) Urine Bilirubin Negative (Negative) Urine Urobilinogen <2.0 (<2.0) mg/dL Ur Leukocyte Esterase Negative (Negative) Influenza Type A (PCR) (Not Detectd) Influenza Type B (PCR) (Not Detectd) RSV (PCR) (Not Detectd) SARS-CoV-2 (PCR) (Not Detectd) Disposition Clinical Impression: Fever of unknown origin (FUO) Disposition: ADMITTED IP TO THIS [facility] Condition: Serious Is patient prescribed a controlled substance at d/c from ED?: No Referrals: Joyce Rivera MD [Primary Care Provider] - 1-2 days Time of Disposition: 18:12
--- NOTE | 2022-09-14 16:37 | XR ---
EXAMINATION TYPE: XR chest 2V DATE OF EXAM: 09/14/2022 4:33 PM COMPARISON: Chest radiographs from 08/02/2017 TECHNIQUE: XR chest 2V Frontal and lateral views of the chest. CLINICAL INDICATION:Male, 37 years old with history of Fever; FINDINGS: Lungs/Pleura: There is no evidence of pleural effusion, focal consolidation, or pneumothorax. Pulmonary vascularity: Unremarkable. Heart/mediastinum: Cardiomediastinal silhouette is unremarkable. Musculoskeletal: No acute osseous pathology. IMPRESSION: No acute cardiopulmonary disease/process. No significant change from prior.
[2022-09-14 16:38] LABS: ALT 37 U/L (4-49); AST 52 U/L (17-59); African American GFR (CKD) >90 (>60 ml/min/1.73 sqM); Albumin 3.3 g/dL (3.5-5.0); Alkaline Phosphatase 97 U/L (38-126); Anion Gap 8 mmol/L; Blood Urea Nitrogen 14 mg/dL (9-20); Calcium 8.6 mg/dL (8.4-10.2); Carbon Dioxide 19 mmol/L (22-30); Chloride 112 mmol/L (98-107); Glucose 126 mg/dL (74-99); Non-African American GFR(CKD) >90 (>60 ml/min/1.73 sqM); Potassium 3.3 mmol/L (3.5-5.1); Sodium 139 mmol/L (137-145); Total Bilirubin 1.3 mg/dL (0.2-1.3); Total Protein 6.2 g/dL (6.3-8.2)
[2022-09-14] MEDS: SODIUM CHLORIDE 0.9% 1,000 ML IV SCH (16:39)
[2022-09-14 16:44] LABS: Appearance,Urine Clear (Clear); Bilirubin,Urine Negative (Negative); Blood,Urine Negative (Negative); Color,Urine Yellow; Glucose,Urine (UA) Negative (Negative); Ketones,Urine Negative (Negative); Leukocyte Esterase,Urine Negative (Negative); Nitrite,Urine Negative (Negative); Protein,Urine Negative (Negative); Specific Gravity,Urine 1.012 (1.001-1.035); Urobilinogen,Urine <2.0 mg/dL (<2.0)
[2022-09-14 16:45] LABS: Basophils % (A) 0 %; Eosinophils % (A) 1 %; HCT 42.7 % (39.0-53.0); HGB 14.8 gm/dL (13.0-17.5); Lymphocytes # (A) 0.2 k/uL (1.0-4.8); Lymphocytes % (A) 5 %; MCH 29.5 pg (25.0-35.0); MCHC 34.7 g/dL (31.0-37.0); MCV 84.9 fL (80.0-100.0); Mean Platelet Volume 8.5; Monocytes # (A) 0.2 k/uL (0-1.0); Monocytes % (A) 4 %; Neutrophils # (A) 4.4 k/uL (1.3-7.7); Neutrophils % (A) 91 %; Platelet Count 113 k/uL (150-450); RBC 5.03 m/uL (4.30-5.90); RDW 13.7 % (11.5-15.5); WBC 4.9 k/uL (3.8-10.6)
[2022-09-14 16:54] LABS: Prothrombin Time 10.6 sec (9.0-12.0)
[2022-09-14 16:55] LABS: Partial Thromboplastin Time 20.8 sec (22.0-30.0)
[2022-09-14] MEDS ORDERED: SODIUM CHLORIDE 0.9% 1,000 ML IV STA ×2 (17:22)
[2022-09-14] MEDS ORDERED: SODIUM CHLORIDE 0.9% 500 ML 500 ML IV STA (17:22)
--- NOTE | 2022-09-14 17:53 | CT ---
EXAMINATION TYPE: CT lumbar spine wo/w con CT DLP: 2113.6 mGycm, Automated exposure control for dose reduction was used. DATE OF EXAM: 09/14/2022 5:28 PM COMPARISON: 01/13/2016. CLINICAL INDICATION:Male, 37 years old with history of fever, ho ivda; back pain, fever TECHNIQUE: Multiple axial images were obtained from the midportion of T11 through the sacroiliac marce nts. Soft tissue and bone windows in coronal and sagittal planes were obtained and reviewed. 3-D ref ormats of the bones were created on a separate workstation and submitted for review. Contrast used: Isovue 300 without and with IV Contrast, none. Oral contrast used: none. FINDINGS: Alignment: There are 5 lumbar type vertebral bodies within normal alignment. Bone: No evidence of fracture is identified. Discs: T12-L1: No spinal canal or neural foraminal stenosis is identified. L1-L2: No spinal canal or neural foraminal stenosis is identified. L2-L3: No spinal canal or neural foraminal stenosis is identified. L3-L4: No spinal canal or neural foraminal stenosis is identified. L4-L5: No spinal canal or neural foraminal stenosis is identified. L5-S1: No spinal canal or neural foraminal stenosis is identified. Other: None IMPRESSION: 1. No evidence for spinal fracture. 2. No evidence for infection or inflammatory process.
[2022-09-14] MEDS ORDERED: HYDROmorphone 1 MG/ML 1 ML SYRINGE IVP STA (18:08)
[2022-09-14] MEDS ORDERED: VANCOMYCIN IV PER PHARMACY 1 EACH MISC MISCELLANE PRN (18:12)
[2022-09-14] MEDS ORDERED: NALOXONE 0.4 MG/ML 1 ML VIAL IV PRN (18:18)
[2022-09-14] MEDS ORDERED: IBUPROFEN 400 MG TAB PO PRN (18:18)
[2022-09-14] MEDS ORDERED: traMADol 50 MG TAB PO PRN (18:18)
[2022-09-14] MEDS ORDERED: ACETAMINOPHEN TAB 325 MG TAB PO PRN (18:18)
[2022-09-14] MEDS ORDERED: GENTAMICIN IN NACL ISO-OSM PMX 80 MG in SALINE 1 100ML.BAG IVPB STA (18:37)
[2022-09-14] MEDS ORDERED: AMPICILLIN-SULBACTAM 3 GM in SODIUM CHLORIDE 0.9% 100 ML IVPB STA (18:38)
[2022-09-14] MEDS ORDERED: GENTAMICIN PER PHARMACY MISCELLANE PRN (18:48)
[2022-09-14] MEDS ORDERED: VANCOMYCIN 1,500 MG in SODIUM CHLORIDE 0.9% 500 ML 500 ML IVPB ONE (19:00)
[2022-09-14] MEDS: HYDROmorphone 1 MG/ML 1 ML SYRINGE IVP PRN (21:39)
[2022-09-15] MEDS: SODIUM CHLORIDE 0.9% 1,000 ML IV SCH ×3 (01:38→14:32)
[2022-09-15] MEDS: HYDROmorphone 1 MG/ML 1 ML SYRINGE IVP PRN ×2 (02:01→11:01)
[2022-09-15] MEDS: AMPICILLIN-SULBACTAM 3 GM in SODIUM CHLORIDE 0.9% 100 ML IVPB SCH ×3 (02:04→14:32)
[2022-09-15] MEDS: GENTAMICIN IN NACL ISO-OSM PMX 80 MG in SALINE 1 100ML.BAG IVPB SCH ×3 (02:49→17:17)
[2022-09-15] MEDS: VANCOMYCIN 1,500 MG in SODIUM CHLORIDE 0.9% 500 ML 500 ML IVPB SCH ×3 (04:05→18:26)
--- NOTE | 2022-09-15 11:12 | CA ---
Transthoracic Echo Report Name: Jesús Oliver Age: 37 Gender: M : 1985 Exam Date: 09/15/2022 07:22 Exam Location: [facility] Ht (in): 68 Wt (lb): 185 Ordering Physician: Hakan Iverson DO Attending/Referring Phys: Inspector Wilber Galindo RDCS Procedure CPT: Indications: FUO, ho ivda Cardiac Hx: Technical Quality: Fair Contrast 1: Total Dose (mL): Contrast 2: Total Dose (mL): MEASUREMENTS (Male / Female) Normal Values 2D ECHO LV Diastolic Diameter PLAX 5.5 cm 4.2 - 5.9 / 3.9 - 5.3 cm LV Systolic Diameter PLAX 4.1 cm IVS Diastolic Thickness 1.3 cm 0.6 - 1.0 / 0.6 - 0.9 cm LVPW Diastolic Thickness 1.4 cm 0.6 - 1.0 / 0.6 - 0.9 cm LV Relative Wall Thickness 0.5 RV Internal Dim ED PLAX 3.1 cm LA Volume 64.2 cm??? 18 - 58 / 22 - 52 cm??? M-MODE Aortic Root Diameter MM 3.2 cm AV Cusp Separation MM 2.1 cm DOPPLER AV Peak Velocity 111.2 cm/s AV Peak Gradient 4.9 mmHg LVOT Peak Velocity 84.4 cm/s LVOT Peak Gradient 2.9 mmHg MV Area PHT 3.8 cm??? Mitral E Point Velocity 74.0 cm/s Mitral A Point Velocity 45.1 cm/s Mitral E to A Ratio 1.6 MV Deceleration Time 201.0 ms TR Peak Velocity 189.1 cm/s TR Peak Gradient 14.3 mmHg Right Atrial Pressure 8.0 mmHg Pulmonary Artery Systolic Pressu 22.3 mmHg Right Ventricular Systolic Press 22.3 mmHg FINDINGS Left Ventricle Left ventricular ejection fraction is estimated at 45-50 %. Left ventricular cavity size normal. Mildly increased septal wall thickness. Right Ventricle Right ventricular dilatation. Normal right ventricular global systolic function. Right ventricular systolic pressure within normal limits. Right Atrium Normal right atrial size. Left Atrium Mildly increased left atrial volume. Mitral Valve Structurally normal mitral valve. No mitral regurgitation. No mitral stenosis. Aortic Valve Trileaflet aortic valve. No aortic regurgitation. No aortic stenosis. Tricuspid Valve Structurally normal tricuspid valve. Mild tricuspid regurgitation. Pulmonic Valve Structurally normal pulmonic valve. Trace pulmonic regurgitation. Pericardium No pericardial or pleural effusion. Aorta Normal size aortic root and proximal ascending aorta. CONCLUSIONS Mildly reduced LV systolic function ejection fraction 45% Mildly dilated RV Previewed by: Dr. Juanjo Moncada MD (Electronically Signed) Final Date: 15 September 2022 11:11
[2022-09-15 11:49] LABS: Basophils # (A) 0.1 k/uL (0-0.2); Basophils % (A) 0 %; Eosinophils # (A) 0.2 k/uL (0-0.7); Eosinophils % (A) 1 %; HCT 36.8 % (39.0-53.0); HGB 12.7 gm/dL (13.0-17.5); Lymphocytes # (A) 1.1 k/uL (1.0-4.8); Lymphocytes % (A) 8 %; MCH 29.4 pg (25.0-35.0); MCHC 34.4 g/dL (31.0-37.0); MCV 85.4 fL (80.0-100.0); Monocytes # (A) 0.5 k/uL (0-1.0); Monocytes % (A) 4 %; Neutrophils # (A) 11.4 k/uL (1.3-7.7); Neutrophils % (A) 85 %; Platelet Count 125 k/uL (150-450); RBC 4.31 m/uL (4.30-5.90); WBC 13.5 k/uL (3.8-10.6)
[2022-09-15 12:09] LABS: ALT 32 U/L (4-49); AST 29 U/L (17-59); African American GFR (CKD) >90 (>60 ml/min/1.73 sqM); Albumin 2.8 g/dL (3.5-5.0); Alkaline Phosphatase 64 U/L (38-126); Anion Gap 4 mmol/L; Blood Urea Nitrogen 13 mg/dL (9-20); Calcium 7.8 mg/dL (8.4-10.2); Carbon Dioxide 23 mmol/L (22-30); Chloride 109 mmol/L (98-107); Glucose 95 mg/dL (74-99); Non-African American GFR(CKD) >90 (>60 ml/min/1.73 sqM); Potassium 4.1 mmol/L (3.5-5.1); Sodium 136 mmol/L (137-145); Total Bilirubin 0.5 mg/dL (0.2-1.3); Total Protein 5.5 g/dL (6.3-8.2)
--- NOTE | 2022-09-15 14:12 | P.HPIM ---
History of Present Illness H&P Date: 09/15/22 Chief Complaint: Fever and chills * 37-year-old gentleman with past medical history significant for IV drug use, hypertension presented to the emergency department with complaints of fever, chills. Patient said he has sent him also for the last 24 hours. Patient decided to come to the emergency to seek medical attention secondary to worsening fatigue, fever. Patient does complain of shortness of breath and cough however chest x-ray obtained at the time of admission was normal patient stated he last used IV meth 4 days ago.He denies associated diarrhea, abdominal pain, cough, nausea, vomiting * Workup in ER showed significant white cell count of 13.5, lactate of 4, p atient was resuscitated with fluids and started on broad-spectrum antibiotic blood cultures obtained * He complained of low back pain CT lumbar spine was obtained which was negative for acute process * Echocardiogram was completed in ED showed ejection fraction of 50% Review of Systems REVIEW OF SYSTEMS: Essentially negative except CONSTITUTIONAL: Fever, chills, fatigue HEENT: No recent visual problems or hearing problems. Denied any sore throat. CARDIOVASCULAR: No chest pain, orthopnea, PND, no palpitations, no syncope. PULMONARY: No shortness of breath, no cough, no hemoptysis. GASTROINTESTINAL: No diarrhea, no nausea, no vomiting, no abdominal pain. NEUROLOGICAL: No headaches, no weakness, no numbness. HEMATOLOGICAL: Denies any bleeding or petechiae. GENITOURINARY: Denies any burning micturition, frequency, or urgency. MUSCULOSKELETAL/RHEUMATOLOGICAL: Denies any joint pain, swelling, or any muscle pain. ENDOCRINE: Denies any polyuria or polydipsia. Past Medical History Past Medical History: Liver Disease, Musculoskeletal Disorder Additional Past Medical History / Comment(s): diverticulitis, IBS, Hepatitis C, chronic back pain, drug user History of Any Multi-Drug Resistant Organisms: None Reported Past Surgical History: Orthopedic Surgery Additional Past Surgical History / Comment(s): left shoulder, left ankle; 8 teeth extracted, [facility] Past Anesthesia/Blood Transfusion Reactions: No Reported Reaction Past Psychological History: Anxiety, Depression Additional Psychological History / Comment(s): Anexity Smoking Status: Current every day smoker Past Alcohol Use History: None Reported Additional Past Alcohol Use History / Comment(s): HAS SMOKED 1 PPD FOR PAST 14 YRS Past Drug Use History: Marijuana, Methamphetamine - Past Family History Father Family Medical History: Unable to Obtain Mother Family Medical History: No Reported History Medications and Allergies Home Medications Medication Instructions Recorded Confirmed Type Metoprolol Succinate (ER) [Toprol 25 mg PO DAILY 07/25/22 09/14/22 History XL] Allergies Allergy/AdvReac Type Severity Reaction Status Date / Time ketorolac tromethamine Allergy Rash/Hives Verified 09/14/22 16:29 [From Toradol] Physical Exam Vitals: Vital Signs Temp Pulse Pulse Resp BP BP Pulse Ox 09/15/22 13:03 98.2 F 59 L 17 104/71 97 09/15/22 11:04 74 17 104/71 97 09/15/22 07:45 98.2 F 75 17 100/68 99 09/15/22 06:55 98 F 70 18 104/66 97 09/15/22 03:21 66 19 103/78 97 09/14/22 21:44 79 18 104/76 98 09/14/22 20:13 77 18 105/70 98 09/14/22 18:46 98.8 F 92 18 110/82 98 09/14/22 17:22 98.3 F 105 H 18 108/69 98 09/14/22 15:27 102 F H 130 H 18 145/93 98 Intake and Output 09/14/22 09/15/22 09/15/22 22:59 06:59 14:59 Intake Total 358 Balance 358 Intake: Oral 358 Other: Voiding Method Toilet # Voids 1 Weight 83.915 kg 83.915 kg PHYSICAL EXAMINATION: Vital reviewed GENERAL: The patient is alert and oriented x3, in appearance, diaphoretic HEENT: Pupils are round and equally reacting to light. EOMI. No scleral icterus. No conjunctival pallor. Normocephalic, atraumatic. No pharyngeal erythema. CARDIOVASCULAR: S1 and S2 present. No murmurs, Edema not present PULMONARY: Chest is clear to auscultation, no wheezing or Ronchi ABDOMEN: Soft, nontender, nondistended, normoactive bowel sounds. No palpable organomegaly. MUSCULOSKELETAL: No joint swelling or deformity. EXTREMITIES: No cyanosis, clubbing, or pedal edema. NEUROLOGICAL: Gross neurological examination did not reveal any focal deficits. SKIN: No rashes. Results CBC & Chem 7: 09/15/22 11:05 09/15/22 11:05 Labs: Abnormal Lab Results - Last 24 Hours (Table) 09/14/22 09/14/22 09/14/22 Range/Units 16:01 16:01 16:01 WBC (3.8-10.6) k/uL Hgb (13.0-17.5) gm/dL Hct (39.0-53.0) % Plt Count 113 L (150-450) k/uL Neutrophils # (1.3-7.7) k/uL Lymphocytes # 0.2 L (1.0-4.8) k/uL APTT 20.8 L (22.0-30.0) sec Sodium (137-145) mmol/L Potassium 3.3 L (3.5-5.1) mmol/L Chloride 112 H (98-107) mmol/L Carbon Dioxide 19 L (22-30) mmol/L Glucose 126 H (74-99) mg/dL Plasma Lactic Acid He (0.7-2.0) mmol/L Calcium (8.4-10.2) mg/dL Total Protein 6.2 L (6.3-8.2) g/dL Albumin 3.3 L (3.5-5.0) g/dL 09/14/22 09/14/22 09/15/22 Range/Units 16:15 19:25 11:05 WBC 13.5 H (3.8-10.6) k/uL Hgb 12.7 L (13.0-17.5) gm/dL Hct 36.8 L (39.0-53.0) % Plt Count 125 L (150-450) k/uL Neutrophils # 11.4 H (1.3-7.7) k/uL Lymphocytes # (1.0-4.8) k/uL APTT (22.0-30.0) sec Sodium (137-145) mmol/L Potassium (3.5-5.1) mmol/L Chloride (98-107) mmol/L Carbon Dioxide (22-30) mmol/L Glucose (74-99) mg/dL Plasma Lactic Acid He 4.2 H* 4.0 H* (0.7-2.0) mmol/L Calcium (8.4-10.2) mg/dL Total Protein (6.3-8.2) g/dL Albumin (3.5-5.0) g/dL 09/15/22 Range/Units 11:05 WBC (3.8-10.6) k/uL Hgb (13.0-17.5) gm/dL Hct (39.0-53.0) % Plt Count (150-450) k/uL Neutrophils # (1.3-7.7) k/uL Lymphocytes # (1.0-4.8) k/uL APTT (22.0-30.0) sec Sodium 136 L (137-145) mmol/L Potassium (3.5-5.1) mmol/L Chloride 109 H (98-107) mmol/L Carbon Dioxide (22-30) mmol/L Glucose (74-99) mg/dL Plasma Lactic Acid He (0.7-2.0) mmol/L Calcium 7.8 L (8.4-10.2) mg/dL Total Protein 5.5 L (6.3-8.2) g/dL Albumin 2.8 L (3.5-5.0) g/dL Thrombosis Risk Factor Assmnt - Choose All That Apply Any of the Below Risk Factors Present?: No Other congenital or acquired thrombophilia - If yes, enter type in comment: No Assessment and Plan Assessment: Assessment and plan * Severe sepsis * History of IV drug use * Infectious disease consulted * Continue patient on broad-spectrum antibiotic, infectious disease to adjust antibiotic based on clinical course * Blood cultures ordered and collected * Follow-up on CBC, CRP, basic metabolic panel * CT lumbar spine and chest x-ray reviewed * Echocardiogram seen * CODE STATUS is full code Time with Patient: Greater than 30
--- NOTE | 2022-09-15 15:10 | P.CNOR ---
History of Present Illness - [facility] Consult date: 09/15/22 Requesting physician: Hakan Iverson Consult reason: low back pain (Chronic low back pain) History of present illness: Patient is a very pleasant 37-year-old male who is seen and examined in the emergency room number 27th for evaluation of his lumbar spine. Patient had presented to the emergency department. During that evaluation in the emergency department stating he did have some chronic low back pain. Consultation was placed in that regard. Lumbar CT imaging has been performed. Patient presents to the emergency department with fever of unknown origin. He states he was also tachycardic at that time. There was some concern for sepsis. Blood cultures have been taken which are pending. He was started on antibiotic medication. Infectious disease has been consulted. He has remained afebrile after his first initial temperature of 102. In regards to his lumbar spine, patient states his pain is actually over his left lower flank towards the kidney. He felt something may be wrong with his kidneys so he presented to the emergency department for further evaluation. He does admit to chronic low back pain. He states he has followed with pain management and [facility] and has undergone injections in the past. He is also followed with Dr. Natarajan for oral pain management. He is not currently working through pain management with oral medications or from a procedural standpoint. He states his low back pain is chronic and is unchanged. He denies any lower extremity weakness or radiculopathy bilaterally. He states at bedside he does not currently wish for further treatment or evaluation in regards to his lumbar spine. He does not wish for consultation with pain management. He previously worked in physical therapy for his lumbar spine but not recently. He does not wish for physical therapy. Patient does admit to chronic difficulty with IV methamphetamines. He states this is been a struggle for him over the past 10 years. He has worked to rehabilitation in the past including [place]. He states he does inject IV methamphetamines once daily. He states he is trying to get this under control. He has no other complaints at the bedside. Labs did show elevated WBC of 13.5. He states that had some concern for his heart and he underwent an echocardiogram which showed evidence of 50% ejection fraction. Patient states he is on disability due to his low back pain. He has been on disability over the past half years. Past Medical History Past Medical History: Liver Disease, Musculoskeletal Disorder Additional Past Medical History / Comment(s): diverticulitis, IBS, Hepatitis C, chronic back pain, drug user History of Any Multi-Drug Resistant Organisms: None Reported Past Surgical History: Orthopedic Surgery Additional Past Surgical History / Comment(s): left shoulder, left ankle; 8 teeth extracted, [facility] Past Anesthesia/Blood Transfusion Reactions: No Reported Reaction Past Psychological History: Anxiety, Depression Additional Psychological History / Comment(s): Anexity Smoking Status: Current every day smoker Past Alcohol Use History: None Reported Additional Past Alcohol Use History / Comment(s): HAS SMOKED 1 PPD FOR PAST 14 YRS Past Drug Use History: Marijuana, Methamphetamine - Past Family History Father Family Medical History: Unable to Obtain Mother Family Medical History: No Reported History Medications and Allergies Home Medications Medication Instructions Recorded Confirmed Type Metoprolol Succinate (ER) [Toprol 25 mg PO DAILY 07/25/22 09/14/22 History XL] Allergies Allergy/AdvReac Type Severity Reaction Status Date / Time ketorolac tromethamine Allergy Rash/Hives Verified 09/14/22 16:29 [From Toradol] Physical Examination Osteopathic Statement: *. No significant issues noted on an osteopathic structural exam other than those noted in the History and Physical/Consult. Physical exam: Patient is awake, alert, and oriented 3 Vital signs stable Good chest excursion with deep inspiration and expiration Examination of lumbar spine reveals skin is intact with no abrasions, lacerations, or bruises; no erythema, purulence or signs of infection No significant pain on palpation of the paraspinal muscles of the lumbar spine bilaterally. Dorsiflexion, plantarflexion, and extensor hallucis longus positive sustained bilaterally Lower extremity strength 5/5 bilaterally Straight leg test negative bilateral lower extremities Negative Lasegue's test bilaterally No signs or symptoms of DVT; no calf pain No pain with internal and external rotation of the hips bilaterally Neurovascularly intact Results Pertinent studies: CT of lumbar spine taken on 09/15/2022: Overall alignment is adequately maintained; no evidence of vertebral body compression fracture; no evidence of bony erosion; no evidence of significant herniated nucleus pulposus, canal stenosis, or foraminal stenosis throughout the lumbar spine; no spondylolis thesis; do not see evidence of obvious infectious process; unremarkable study of the lumbar spine - Labs Labs: Abnormal Lab Results - Last 24 Hours (Table) 09/14/22 09/14/22 09/14/22 Range/Units 16:01 16:01 16:01 WBC (3.8-10.6) k/uL Hgb (13.0-17.5) gm/dL Hct (39.0-53.0) % Plt Count 113 L (150-450) k/uL Neutrophils # (1.3-7.7) k/uL Lymphocytes # 0.2 L (1.0-4.8) k/uL APTT 20.8 L (22.0-30.0) sec Sodium (137-145) mmol/L Potassium 3.3 L (3.5-5.1) mmol/L Chloride 112 H (98-107) mmol/L Carbon Dioxide 19 L (22-30) mmol/L Glucose 126 H (74-99) mg/dL Plasma Lactic Acid He (0.7-2.0) mmol/L Calcium (8.4-10.2) mg/dL Total Protein 6.2 L (6.3-8.2) g/dL Albumin 3.3 L (3.5-5.0) g/dL 09/14/22 09/14/22 09/15/22 Range/Units 16:15 19:25 11:05 WBC 13.5 H (3.8-10.6) k/uL Hgb 12.7 L (13.0-17.5) gm/dL Hct 36.8 L (39.0-53.0) % Plt Count 125 L (150-450) k/uL Neutrophils # 11.4 H (1.3-7.7) k/uL Lymphocytes # (1.0-4.8) k/uL APTT (22.0-30.0) sec Sodium (137-145) mmol/L Potassium (3.5-5.1) mmol/L Chloride (98-107) mmol/L Carbon Dioxide (22-30) mmol/L Glucose (74-99) mg/dL Plasma Lactic Acid He 4.2 H* 4.0 H* (0.7-2.0) mmol/L Calcium (8.4-10.2) mg/dL Total Protein (6.3-8.2) g/dL Albumin (3.5-5.0) g/dL 09/15/22 Range/Units 11:05 WBC (3.8-10.6) k/uL Hgb (13.0-17.5) gm/dL Hct (39.0-53.0) % Plt Count (150-450) k/uL Neutrophils # (1.3-7.7) k/uL Lymphocytes # (1.0-4.8) k/uL APTT (22.0-30.0) sec Sodium 136 L (137-145) mmol/L Potassium (3.5-5.1) mmol/L Chloride 109 H (98-107) mmol/L Carbon Dioxide (22-30) mmol/L Glucose (74-99) mg/dL Plasma Lactic Acid He (0.7-2.0) mmol/L Calcium 7.8 L (8.4-10.2) mg/dL Total Protein 5.5 L (6.3-8.2) g/dL Albumin 2.8 L (3.5-5.0) g/dL H & H 09/14/22 09/15/22 Range/Units 16:01 11:05 Hgb 14.8 12.7 L (13.0-17.5) gm/dL Hct 42.7 36.8 L (39.0-53.0) % Coagulation 09/14/22 Range/Units 16:01 INR 1.0 (<1.2) Result Diagrams: 09/15/22 11:05 09/15/22 11:05 Assessment and Plan Assessment: Assessment: Chronic low back pain Long-term IV methamphetamine use Fever at presentation to the emergency department Leukocytosis Tachycardia at presentation to the emergency department (1) Chronic low back pain Status: Acute Code(s): M54.50 - LOW BACK PAIN, UNSPECIFIED; G89.29 - OTHER CHRONIC PAIN SNOMED Code(s): 181134317 (2) Leukocytosis Status: Acute Code(s): D72.829 - ELEVATED WHITE BLOOD CELL COUNT, UNSPECIFIED SNOMED Code(s): 206927538 (3) Methamphetamine use Status: Acute Code(s): F15.10 - OTHER STIMULANT ABUSE, UNCOMPLICATED SNOMED Code(s): 884804992 (4) Tachycardia Status: Acute Code(s): R00.0 - TACHYCARDIA, UNSPECIFIED SNOMED Code(s): 3589705 (5) Fever of unknown origin (FUO) Status: Acute Code(s): R50.9 - FEVER, UNSPECIFIED SNOMED Code(s): 7606183 Plan: Plan: 1. Patient has a history of chronic low back pain. He states his symptoms are not currently any different than his ongoing chronic low back pain. He does not experiencing lower extremity weakness or radiculopathy bilaterally he is not experiencing any midline lumbar pain. His pain is most significant over his left flank. Lumbar CT imaging did not show evidence of compression fracture deformity, bony erosion, canal stenosis, herniated nucleus pulposus, or obvious infectious process. There were no significant findings in regards to his lumbar spine on lumbar CT imaging. He has a history of injections with pain management and [facility]. He has also been followed in the outpatient setting with Dr. Natarajan for oral pain management. He is previously worked to physical therapy in the outpatient setting. Currently, he does not feel he would like to have any further treatment or evaluation regards to his lumbar spine. He feels he can manage his chronic low back pain. He states he presented to the emergency department because of his fever and tachycardia and would not he presented solely for his low back pain. At this time he related to continue with his own conservative treatment measures. From an orthopedic spine standpoint, patient now clear for discharge. He may follow-up in outpatient setting on an as-needed basis. 2. Patient does admit to long-term IV methamphetamine use. Patient does not wish for information on or possible referral to a rehabilitation facility. He would like to manage this in the outpatient setting on his own. I have reviewed the case as well as the documentation and imaging and I agree with the above dictation. There is no indication for spinal surgery or further intervention for her spine at this point beyond conservative treatment. He should continue his conservative management in terms of his spine and continue his workup and treatment for his current issues. Time with Patient: Greater than 30 (Including obtaining history, physical examination, reviewing of imaging, and dictation.)
[2022-09-15 19:55] VITALS: BP 134/85; PULSE 83; RESP 14; TEMP 97.8
--- NOTE | 2022-09-15 21:47 | P.CONS ---
History of Present Illness - Reason for Consult Consult date: 09/15/22 Fever and back pain Requesting physician: Hakan Iverson - Chief Complaint Fever and back pain x 1 day - History of Present Illness Patient is a 37-year-old male with a past medical his significant for IV amphetamine use last use has been about a week ago patient is presenting to the ER at [facility] yesterday afternoon for evaluation of fever and had lower back pain patient mention his symptoms started around 11 the day of presentation to the hospital and the patient also complaining of pain to the lower back area mostly to the left side patient describes the pain to be sharp intensity was almost 7-8 out of 10 with no radiation down the leg and no bowel and bladder problems denies any weakness in the lower extremity patient denies any headache or URI symptoms no chest pain no shortness with occasional cough no nausea no vomiting no abdominal pain or any diarrhea patient on presentation to the hospital did have a fever of 102 F patient was not hypoxic or need for supplemental oxygen he did have a normal white count initially however his white count this morning is 13.5 with a left shift lactic acid was elevated creatinine was normal liver exams are normal urine is negative influenza RSV and COVID testing are negative blood cultures obtained which are currently pending patient did have a chest x-ray no acute cardiopulmonary process patient did have a lumbar spine CT no evidence of other spinal fractures evidence of infection or inflammatory process patient also have an echocardiogram did not show any vegetation normal EF patient was started on BuSpar antibiotic currently on vancomycin gentamicin and Unasyn infectious disease was consulted for further management of antibiotic therapy Review of Systems Positive point has been mentioned in HPI rest of the systems are negative Past Medical History Past Medical History: Liver Disease, Musculoskeletal Disorder Additional Past Medical History / Comment(s): diverticulitis, IBS, Hepatitis C, chronic back pain. States Hepatitis C was acute and now it's gone - per Dr. Chapin History of Any Multi-Drug Resistant Organisms: None Reported Past Surgical History: Orthopedic Surgery Additional Past Surgical History / Comment(s): left shoulder, left ankle; 8 teeth extracted, [facility] Past Anesthesia/Blood Transfusion Reactions: No Reported Reaction Past Psychological History: Anxiety, Depression Smoking Status: Current every day smoker Past Alcohol Use History: None Reported Past Drug Use History: Marijuana, Methamphetamine - Past Family History Father Family Medical History: Unable to Obtain Mother Family Medical History: No Reported History Medications and Allergies Home Medications Medication Instructions Recorded Confirmed Type Metoprolol Succinate (ER) [Toprol 25 mg PO DAILY 07/25/22 09/14/22 History XL] Allergies Allergy/AdvReac Type Severity Reaction Status Date / Time ketorolac tromethamine Allergy Rash/Hives Verified 09/14/22 16:29 [From Toradol] Physical Exam Vitals: Vital Signs Temp Pulse Pulse Resp BP BP Pulse Ox 09/15/22 11:04 74 17 104/71 97 09/15/22 07:45 98.2 F 75 17 100/68 99 09/15/22 06:55 98 F 70 18 104/66 97 09/15/22 03:21 66 19 103/78 97 09/14/22 21:44 79 18 104/76 98 09/14/22 20:13 77 18 105/70 98 09/14/22 18:46 98.8 F 92 18 110/82 98 09/14/22 17:22 98.3 F 105 H 18 108/69 98 09/14/22 15:27 102 F H 130 H 18 145/93 98 Intake and Output 09/14/22 09/15/22 09/15/22 22:59 06:59 14:59 Intake Total 358 Balance 358 Intake: Oral 358 Other: Voiding Method Toilet # Voids 1 Weight 83.915 kg GENERAL DESCRIPTION: Middle-aged male lying in bed, no distress. No tachypnea or accessory muscle of respiration use. HEENT: Shows Pallor , no scleral icterus. Oral mucous membrane is dry. NECK: Trachea central, no thyromegaly. LUNGS: Unlabored breathing. Clear to auscultation anteriorly. No wheeze or crackle. HEART: S1, S2, regular rate and rhythm. ABDOMEN: Soft, no tenderness , guarding or rigidity EXTREMITIES: No edema of feet. No significant tenderness of the lumbosacral spine was noticed on clinic examination SKIN: No rash, no masses palpable. NEUROLOGICAL: The patient is awake, alert, oriented x3, mood and affect normal. Results CBC & Chem 7: 09/15/22 11:05 09/15/22 11:05 Labs: Abnormal Lab Results - Last 24 Hours (Table) 09/14/22 09/14/22 09/14/22 Range/Units 16:01 16:01 16:01 WBC (3.8-10.6) k/uL Hgb (13.0-17.5) gm/dL Hct (39.0-53.0) % Plt Count 113 L (150-450) k/uL Neutrophils # (1.3-7.7) k/uL Lymphocytes # 0.2 L (1.0-4.8) k/uL APTT 20.8 L (22.0-30.0) sec Sodium (137-145) mmol/L Potassium 3.3 L (3.5-5.1) mmol/L Chloride 112 H (98-107) mmol/L Carbon Dioxide 19 L (22-30) mmol/L Glucose 126 H (74-99) mg/dL Plasma Lactic Acid He (0.7-2.0) mmol/L Calcium (8.4-10.2) mg/dL Total Protein 6.2 L (6.3-8.2) g/dL Albumin 3.3 L (3.5-5.0) g/dL 09/14/22 09/14/22 09/15/22 Range/Units 16:15 19:25 11:05 WBC 13.5 H (3.8-10.6) k/uL Hgb 12.7 L (13.0-17.5) gm/dL Hct 36.8 L (39.0-53.0) % Plt Count 125 L (150-450) k/uL Neutrophils # 11.4 H (1.3-7.7) k/uL Lymphocytes # (1.0-4.8) k/uL APTT (22.0-30.0) sec Sodium (137-145) mmol/L Potassium (3.5-5.1) mmol/L Chloride (98-107) mmol/L Carbon Dioxide (22-30) mmol/L Glucose (74-99) mg/dL Plasma Lactic Acid He 4.2 H* 4.0 H* (0.7-2.0) mmol/L Calcium (8.4-10.2) mg/dL Total Protein (6.3-8.2) g/dL Albumin (3.5-5.0) g/dL 09/15/22 Range/Units 11:05 WBC (3.8-10.6) k/uL Hgb (13.0-17.5) gm/dL Hct (39.0-53.0) % Plt Count (150-450) k/uL Neutrophils # (1.3-7.7) k/uL Lymphocytes # (1.0-4.8) k/uL APTT (22.0-30.0) sec Sodium 136 L (137-145) mmol/L Potassium (3.5-5.1) mmol/L Chloride 109 H (98-107) mmol/L Carbon Dioxide (22-30) mmol/L Glucose (74-99) mg/dL Plasma Lactic Acid He (0.7-2.0) mmol/L Calcium 7.8 L (8.4-10.2) mg/dL Total Protein 5.5 L (6.3-8.2) g/dL Albumin 2.8 L (3.5-5.0) g/dL Assessment and Plan (1) Fever of unknown origin (FUO) Status: Acute Code(s): R50.9 - FEVER, UNSPECIFIED SNOMED Code(s): 7762828 (2) Leukocytosis Status: Acute Code(s): D72.829 - ELEVATED WHITE BLOOD CELL COUNT, UNSPECIFIED SNOMED Code(s): 303837639 Plan: 1patient was in the hospital with fever lower back pain in this patient who did have features of sepsis with fever elevated white count and elevated lactic acid patient initial work-up has been negative including a negative chest x-ray urine has been negative patient abdominal soft on clinical examination, patient did not have any evidence of cellulitis at the site of injection, with concern for possible lumbosacral spinal infection in this patient with a history of IV drug use 2-we will obtain inflammatory markers 3-patient would benefit from MRI of the lumbosacral spine await Ortho evaluation 4-patient to continue with the vancomycin and Unasyn while waiting for the culture to finalize We will follow on clinical condition and cultures to further adjust medication if needed Thank you for this consultation we will follow the patient along with you
[2022-09-16] MEDS ORDERED: ENOXAPARIN 40 MG/0.4 ML SYRINGE SQ SCH (09:00)
[2022-09-16] MEDS ORDERED: GENTAMICIN TROUGH DUE 1 EACH MISC MISCELLANE ONE (09:00)
[2022-09-16] MEDS ORDERED: VANCOMYCIN TROUGH DUE 1 EACH MISC MISCELLANE ONE (09:00)
[2022-09-16] MEDS ORDERED: METOPROLOL SUCCINATE (ER) 25 MG TAB.ER.24H PO SCH (09:00)
[2022-09-16] MEDS ORDERED: GENTAMICIN PEAK DUE 1 EACH MISC MISCELLANE ONE (12:00)
== END 2022-09-15 19:58 | disposition left against medical advice (07) | DRG 872 ==
LOC: EC 15:26 → 3SCARD 18:18 → 4SSUR 09-15 05:13 → 3SCARD 09-15 05:20
PROVIDERS: ADMIT Internal Medicine; ATTEND Internal Medicine
DX: A41.9 Sepsis, unspecified organism (principal); R65.20 Severe sepsis without septic shock; Z20.822 Contact with and (suspected) exposure to COVID-19; F15.10 Other stimulant abuse, uncomplicated; Z53.29 Procedure and treatment not carried out because of patient's decision for other reasons; G89.29 Other chronic pain; I10 Essential (primary) hypertension; M54.50 Low back pain, unspecified; K58.9 Irritable bowel syndrome, unspecified; I07.1 Rheumatic tricuspid insufficiency; B19.20 Unspecified viral hepatitis C without hepatic coma; F17.210 Nicotine dependence, cigarettes, uncomplicated; F32.A Depression, unspecified; F41.9 Anxiety disorder, unspecified; Z88.5 Allergy status to narcotic agent
CPT/HCPCS: 36415; 71046; 72133; 80053; 81003; 83605; 84484; 85025; 85610; 85730; 87040; 87636; 93005; 93306